=== PATIENT | male | born 1965 | race Caucasian/White ===

== ENCOUNTER 2025-01-12 12:19 | Outpatient (REF) | payer MEDICAID, SELFPAY ==
--- NOTE | ~2025-01-12 | US_ITS ---
EXAMINATION: US RETROPERITONEUM HISTORY: CHRONIC KIDNEY DISEASE TECHNIQUE: Real-time grayscale ultrasound imaging of the kidneys was performed and images were reviewed. COMPARISON: There are no prior studies available for comparison. FINDINGS: Right kidney: The right kidney measures 9.2 x 4.7 x 4.5 cm. Renal parenchymal echotexture and thickness are normal. There are no masses. There is no hydronephrosis or renal calculi. Left Kidney: The left kidney measures 9.6 x 4.7 x 4.7 cm. Renal parenchymal echotexture and thickness are normal. There are no masses. There is no hydronephrosis or renal calculi. The urinary bladder is unremarkable. Bilateral ureteral jets are identified. Before voiding, the urinary bladder measured 8.3 x 6.0 x 7.9 cm, for an estimated volume of 206 mL. The patient could not void. The prostate is poorly visualized. US/US retroperitoneal comp IMPRESSION: 1. The kidneys are unremarkable in appearance. 2. The patient could not void despite 206 mL in the urinary bladder. 3. The prostate is not well visualized. Electronically signed by: Fer Mireles MD 01/12/2025 01:26 PM EDT
--- OUTSIDE RECORDS SUMMARY | 2025-01-12 13:00 | XMS_ITS | Encounter Summary ---
Author Organization [facility] Address [address] [place] [address] Care Team Providers Care Data Engineer Name Role Phone Crow Raya MD Primary Care Provider [phone] Sherri Aguirre PA-C Primary Care Provider [phone] Encounter Details Date Type Department Care Team (Late st Contact Info) Description 09/21/2019 Lab Requisition [facility] Pathology & Laboratory Medicine - [facility] [address] [place] [address] Unknown, Provider, Social History Tobacco Use Types Packs/Day Years Used Date Smoking Tobacco: Never Assessed Sex and Gender Information Value Date Recorded Sex Assigned at Not on file Legal Sex Male 18:42 EST Gender Identity Not on file Sexual Orientation Not on file documented as of this encounter Plan of Treatment Not on file documented as of this encounter Procedures Procedure Name Priority Date/Time Associated Diagnosis Comments URINE [id number] NE RATIO (ACR) Routine 09/21/2019 13:32 EDT documented in this encounter Results * (ABNORMAL) ALBUMIN, URINE (09/21/2019 13:32 EDT) Albumin, Urine 22.2 See Note mg/dL 2019 22:09 EDT [facility] Comment: NOTE: Reference range not established Creatinine, Urine 28.9 See Note mg/dL 09/21/2019 22:09 EDT [facility] Comment: NOTE: Reference range not established Lab Urine Albumin to Creatinine Ratio 768(H) <30 ug/mg Creatinine 09/21/2019 22:09 EDT [facility] Comment: Urine Albumin/Creatinine Ratio: Normal: <30 ug/mg Creatinine Moderately increased albuminuria: 30-300 ug/mg Creatinine Tawana increased albuminuria: >300 ug/mg Creatinine Urine URINE SPECIMEN OBTAINED BY CLEAN CATCH PROCEDURE / Unknown 09/21/2019 13:32 EDT 09/21/2019 21:30 EDT us Provider Unknown CHEMISTRY & BLOOD GAS ORDERA BLES Final Result [facility] [address] [place] [address] documented in this encounter Visit Diagnoses Not on filedocumented in this encounter Care Teams Data Engineer Relationship Specialty Start Date End Date Crow Raya MD [address] [place] [id number] PCP - General 06/28/09 10/30/21 Sherri Aguirre PA-C [address] [place] [address] PCP - General 10/31/21 documented as of this encounter
--- OUTSIDE RECORDS SUMMARY | 2025-01-12 13:00 | XMS_ITS | Clinical Summary ---
Author Organization [facility] Address [facility] [place] [address] Care Team Providers Care Quality Improvement Coordinator (Rn) Name Role Phone Rangel Kruse ANIBAL Primary Care Provider [phone] Allergies Active Allergy Reactions Criticality Noted Date Comments Penicillins Rash 01/15/2021 Medications albuteroL 90 mcg/actuation HFA Aerosol Inhaler Inhale 2 puffs into the lungs every 6 hours as needed for Wheezing. Use with spacer Active krill/om-3/dha /epa/phospho/a st (MAXIMUM RED KRILL OMEGA-3 ORAL) Take 1,000 mg by mouth daily. Active polyethylene glycoL (Miralax) 17 gram oral powder packet Take 17 g by mouth 2 times daily. 4 Active Insulin Syringe-Needle U-100 0.5 mL 31 gauge x 5/16 SyringeIndicat ions:diabetes mellitus Inject 1 each subcutaneously nightly. Indications: diabetes 200 each 4 Active aspirin 81 mg chewable tablet Take 81 mg by mouth daily. 30 tablet 4 Active baclofen (Lioresal) 10 mg tablet Take 1 tablet by mouth 3 times daily. 90 tablet 4 Active bisacodyl EC (Dulcolax) 5 mg Tablet, Delayed Release (E.C.) Take 3 tablets by mouth daily. 90 tablet [address] (Cymbalta) [address] capsule Take 1 capsule by mouth daily. 30 tablet 4 Active omeprazole (PriLOSEC) [address] capsule Take 1 capsule by mouth 2 times daily. 60 capsule 4 Active senna (Senokot) 8.6 mg tablet Take 2 tablets by mouth 2 times daily. 120 tablet 4 Active diclofenac (Voltaren) 1 % Gel Apply 2 g topically 3 times daily as needed. 200 g 4 Active psyllium husk Take 1 packet by mouth daily. 30 packet 4 Active lidocaine (Lidoderm) 5% Adhesive Patch, Medicated Apply 1 patch onto the skin daily. (leave on for 12 hours and remove for 12 hours) 60 patch 4 Active buprenorphine (Subutex) [address] 1 tablet under the tongue 3 times daily. 90 tablet 4 Active blood sugar diagnostic strips Strip Use as instructed 200 each 4 Active blood sugar diagnostic strips Strip Use as instructed 100 each 4 Active Semglee U-100 Insulin 100 unit/mL SolutionIndica tions:type 1 diabetes mellitus Inject 10 Units subcutaneously nightly. Indications: type 1 diabetes mellitus 10 mL 4 Active Semglee U-100 Insulin 100 unit/mL SolutionIndica tions:type 1 diabetes mellitus Inject 18 Units subcutaneously daily. Indications: type 1 diabetes mellitus 10 mL 4 Active naloxone (Narcan) 4 mg/actuation nasal spray 1 spray by Nasal route once as needed (For opioid overdose) for up to 2 doses. [place] into one nostril (either left or right). 2 each 4 Active Admelog U-100 Insulin lispro 100 unit/mL SolutionIndica tions:type 2 diabetes mellitus Inject 0-16 Units subcutaneously 3 times daily (before meals). Please see administration instructions based on size of your meal. Indications: type 2 diabetes mellitus 12 mL 4 Active pregabalin (Lyrica) 75 mg capsule Take 1 capsule by mouth 3 times daily. 90 tablet 4 Active atorvastatin (Lipitor) 40 mg tablet Take 1 tablet by mouth every evening. 30 tablet 4 Active risperiDONE (RisperDAL) 1 mg tablet Take 1 tablet by mouth nightly. 30 tablet 4 Active tamsulosin (Flomax) 0.4 mg capsule Take 2 capsules by mouth daily. 90 tablet 3 4 Active apixaban (Eliquis) 5 mg tablet Take 1 tablet by mouth 2 times daily. 60 tablet Active Active Problems Problem Noted Date Diagnosed Date Pressure injury of deep tissue of sacral region 01/07/2024 Severe opioid use disorder 01/05/2024 Toxic metabolic encephalopathy 01/05/2024 DKA (diabetic ketoacidosis) 01/05/2024 GUSTAVO (acute kidney injury) 01/05/2024 Coag negative Staphylococcus bacteremia 01/05/20 Altered mental status 09/20/2023 Constipation 08/19/2023 Urinary retention due to benign prostatic hyperp lasia 08/02/2023 R MCA/CHUCK borderzone infarct s; associated with an atherosclerotic ICA occlusion 07/28/2023 Overview (07/30/2023): Admitted 07/25/2023 Dx: right hemispheric infarction associated with an atherosclerotic ICA occlusion Antithrombotic stroke prevention Statin therapy Lipid Panel Lab Results Component Value Date CHLPL 141 07/26/2023 HDL 36 07/26/2023 CHOLHDL 3.9 07/26/2023 TRIG 115 07/26/2023 LDLDIRECT 81 07/26/2023 Blood Pressure goals/control Rx SBP> Ideally: Glycemic control Lab Results Component Value Date HA1C 7.7 (H) 07/26/2023 Smoking/tobacco Social History Tobacco Use Smoking Status Every Day Years: 25 Types: Cigarettes Passive exposure: Current Smokeless Tobacco Not on file VTE ppx Fluids Nutrition Carb Control diet 60/60/75 CHO counting level 2 Discharge barriers (eg., guardianship, advance directive, insurance) Meds reconciled? NIHSS (need approx 36 hour post t-PA and intervention) NIH Stroke Scale (from Navigator) NIH Stroke Scale Date 07/25/23 NIH Stroke Scale Time 2200 Level of Consciousness 0 LOC Questions 0 LOC Commands 0 Best Gaze 0 Vision 0 Facial Palsy 0 Motor Arm, Left 1 Motor Arm, Right 0 Motor Leg, Left 1 Motor Leg, Right 0 Limb Ataxia 1 Sensory 0 Best Language 0 Dysarthria 0 Extinction and Inattention: 1 NIH Total Score 4 Occlusion of right internal carotid artery 07/28 Chronic lacunar ischemic stroke 07/28/2023 Arthritis of right ankle 01/15/2021 Chronic hepatitis C 01/15/2021 Chronic pain of right ankle 01/15/2021 Chronic pain of right hand 01/15/2021 Cigarette smoker 01/15/2021 Diabetes mellitus type 1 01/15/2021 Fibrosis of liver 01/15/2021 History of positive hepatitis C 01/15/2021 Panic disorder 01/15/2021 H/O drug abuse 08/01/2020 Diabetic retinopathy 08/01/2020 Hypertension 08/01/2020 Marijuana use 08/01/2020 Bipolar disorder 06/04/2017 Chronic GERD 06/04/2017 Chronic low back pain 06/04/2017 Type 1 diabetes mellitus with retinopathy 2017 Opioid dependence 06/04/2017 Panic disorder without agoraphobia 06/04/2017 Post-traumatic stress disorder, chronic 06/04/19 18 Social History Tobacco Use Types Packs/Day Years Used Date Smoking Tobacco: Every Day Cigarettes Passive Smoke Exposure: Current Tobacco Cessation:Ready to Q uit: Yes; Counseling Given: Yes Alcohol Use Standard Drinks/Week Comments Yes 0 (1 standard drink = 0.6 oz pur e alcohol) [facility] Utilities Answer Date Recorded In the past 12 months has th e [employer], [employer], oil, or water [employer] threatened to shut off services in your home? No 01/05/2024 Hunger Vital Sign Answer Date Recorded Within the past 12 months, y ou worried that your food would run out before you got the money to buy more. Never true 01/05/20 24 Within the past 12 months, t he food you bought just didn't last and you didn't have money to get more. Never true 01/05/2024 PRAPARE - Transportation Answer Date Re corded In the past 12 months, has l ack of transportation kept you from medical appointments or from getting medications? No 10/2023 In the past 12 months, has l ack of transportation kept you from meetings, work, or from getting things needed for daily living? No 01/05/2024 Housing Stability Vital Sign Answer Leander e Recorded In the last 12 months, was t here a time when you were not able to pay the mortgage or rent on time? Patient unable to answer 09/22/2023 In the last 12 months, how m any places have you lived? 1 09/22/2023 In the last 12 months, was t here a time when you did not have a steady place to sleep or slept in a penitentiary (including now)? No 09/22/2023 Housing Stability Vital Sign Answer Leander e Recorded In the last 12 months, was t here a time when you were not able to pay the mortgage or rent on time? No 01/05/2024 In the past 12 months, how m any times have you moved where you were living? 1 01/05/2024 At any time in the past 12 m [facility], were you homeless or living in a penitentiary (including now)? No 01/05/2024 DH IPV Inpatient Questions Answer Date Recorded Does Anyone Try to Keep You From Having Contact with Others or Doing Things Outside Your Home? no 024 Feels Threatened by Someone other (see comments) 01/09/2024 Feels Unsafe at Home or Work/School yes 01/09/2024 Physical Signs of Abuse Present no 01/09/2024 Sex and Gender Information Value Date Recorded Sex Assigned at Not on file Legal Sex Male 7:11 AM EST Gender Identity Not on file Sexual Orientation Not on file Last Filed Vital Signs Vital Sign Reading Time Taken Comments Blood Pressure 115/69 02/06/2024 2:28 PM EDT Pulse 80 02/06/2024 7:39 AM EDT Temperature 36.9 C (98.4 F) 02/06/2024 2:28 PM EDT Respiratory Rate 18 02/06/2024 2:28 PM EDT Oxygen Saturation 96% 02/06/2024 2:28 PM EDT Inhaled Oxygen Concentration - - Weight 76.8 kg (169 lb 6.4 oz) 02/06/2024 9:23 A M EDT Height 170 cm (5' 6.93 ) 01/21/2024 1:32 PM EDT Body Mass Index 26.59 01/21/2024 1:32 PM EDT Plan of Treatment Health Maintenance Due Date Last Done Comments CT Colonography 1967 Colonoscopy 1967 Colorectal Cancer Screening 1967 FIT DNA 1967 FIT 1967 Sigmoidoscopy (10 year) with FIT yearly 1967 Sigmoidoscopy 1967 DM Ophthalmology Exam 10/14/1977 Hepatitis A vaccine 0-18 yrs and Risk (1 of 2 - Risk 2-dose series) 10/14/1986 Hepatitis B vaccine (0-59 yr s) and Risk (1) 10/14/1986 Pneumoccocal Vaccine: 50+ (1 of 2 - PCV) 10/14/1986 Tetanus/Diphtheria/Pertussis Vaccines (1 - Tdap) 10/14/1986 Zoster vaccine (1 of 2) 10/14/2017 Covid-19 Vaccine (6 - 2023-2 5 season) 2024 05/21/2023, 02/27/2022, 06/20/2021, Additional history exists DM Hemoglobin A1c 04/06/2024 01/05/2024, 07/26/2023 Influenza (Flu) vaccine (1 o f 1 - Influenza standard series) 01/31/2025 DM Creatinine yearly 02/05/2025 02/06/2024, 02/05/2024, 02/04/2024, Additional history exists Lipid Screening Discontinued 07/26/2023 HIV screen Completed 01/15/2024 Procedures Procedure Name Priority Date/Time Associated Diagnosis Comments BASIC METABOLIC PANEL Routine 02/06/2024 6:20 AM EDT BLOOD GAS ARTERIAL POC Routine 01/15/2024 5:33 AM EDT HEMOGLOBIN A1C Add-On 01/05/2024 5:59 AM EDT HDL/CHOL PROFILE Routine 07/26/2023 6:35 AM EST from Last 3 Months or Most Recently Relevant to Health Maintenance Results * (ABNORMAL) Basic Metabolic Panel (02/06/2024 6:20 AM EDT) Glucose 127 65 - 199 mg/dL 02/06/2024 8:52 AM EDT [facility] Comment:Glucose Concentratio n >=200 mg/dL plus symptoms is consistent with Diabetes Mellitus. Blood Urea Nitrogen 55(H) 10 - 20 mg/dL 02/06/2024 8:52 AM EDT [facility] Creatinine 1.38 0.80 - 1.50 mg/dL 02/06/2024 8:52 AM EDT [facility] Sodium 138 135 - 145 mMol/L 02/06/2024 8:52 AM EDT [facility] Potassium 4.3 3.5 - 5.0 mMol/L 02/06/2024 8:52 AM EDT [facility] Chloride 103 98 - 107 mMol/L 02/06/2024 8:52 AM EDT [facility] Carbon Dioxide 26 22 - 31 mMol/L 02/06/2024 8:52 AM EDT [facility] Anion Gap 9 5 - 15 mMol/L 02/06/2024 8:52 AM EDT [facility] Calcium 9.3 8.5 - 10.5 mg/dL 02/06/2024 8:52 AM [facility] Est Glomerular Filtration Rate - Male 60 mL/min/1. 73 m 02/06/2024 8:52 AM T [facility] Comment: This patient's estimated GFR was calculated using the 2020 CKD-EPI equation. The estimated GFR can vary from the measured GFR by up to 30% in the absence of rapidly changing kidney function. Assessment of the estimated GFR is not appropriate when creatinine concentrations are rapidly changing. For clinical situations in which a more precise estimate of GFR is necessary, consider alternative methods of GFR estimation such as a 24-hour urine creatinine clearance. Assignment of CKD stage 1 - 5 for patients with an eGFR near the transition point between stages may be based on clinical assessment of muscle mass and symptoms in addition to eGFR. Link: eGFR Calculator [employer] Blood VENOUS BLOOD SPECIMEN / Unknown IP Care Team Draw / Unknown 02/06/2024 6:20 AM EDT 02/06/2024 6:27 AM EDT us Cl Smith MD CHEMISTRY ORDERABLES Final Re sult [facility] [place] [address] * (ABNORMAL) Blood Gas, Arterial POC (01/15/2024 5:33 AM EDT) pH, Arterial 7.40 7.35 - 7.45 01/15/2024 6:53 AM EDT [facility] PCO2, Arterial 40 35 - 45 mmHg 01/15/2024 6:53 AM [facility] PO2, Arterial 97 85 - 104 mmHg 01/15/2024 6:53 AM [facility] Bicarbonate, Arterial 24.2 20.0 - 26.0 mmol/L 01/15/2024 6:53 AM [facility] Base Excess, Arterial -0.5 -3.0 - 3.0 mmol/L 01/15/2024 6:53 AM [facility] Hemoglobin, Arterial 9.4(L) 13.7 - 16.5 g/dL 01/15/2024 6:53 AM [facility] Oxyhemoglobin, Arterial 96.3 94.0 - 97.0 % 01/15/2024 6:53 AM [facility] Carboxyhemoglobin, Arterial 0.6 % 01/15/2024 6:53 AM [facility] Comment: Nonsmokers: 0.5-1.5% COHB Smokers: Variable but usually less than 10% Toxic: 20-30% COHB Lethal: Greater than 60% COHB Methemoglobin, Arterial 0.3 <=1.5 % 01/15/2024 6:53 AM [facility] Sodium, Arterial 136 135 - 145 mmol/L 01/15/2024 6:53 AM [facility] Potassium, Arterial 3.9 3.5 - 5.0 mmol/L 01/15/2024 6:53 AM [facility] Chloride, Arterial 103 98 - 107 mmol/L 01/15/2024 6:53 AM [facility] Lactate, Arterial 1.8 0.5 - 2.2 mmol/L 01/15/2024 6:53 AM [facility] Fraction of Inspired Oxygen 21 % 01/15/2024 6:53 AM [facility] PF Ratio 462 Ratio 01/15/2024 6:53 AM [facility] Comment:PF ratio calculated using the non-temperature corrected pO2 result. IONIZED CALCIUM, ARTERIAL 1.18 1.15 - 1.33 mmol/L 01/15/2024 6:53 AM EDT [facility] Glucose, Arterial 138 65 - 199 mg/dL 01/15/2024 6:53 AM EDT [facility] Comment:Glucose Concentratio n >=200 mg/dL plus symptoms is consistent with Diabetes Mellitus. Blood ARTERIAL BLOOD / Unknown 01/15/2024 5:33 AM EDT 01/15/2024 6:53 AM EDT us Luther Robbins DO POINT OF CARE TEST ORDERABLES Fi nal Result Performing Organization Address City/[facility]/ZIP Co de Phone Number [facility] [place] [address] * (ABNORMAL) Hemoglobin A1c (01/05/2024 5:59 AM EDT) Hemoglobin A1c 8.6(H) 4.3 - 5.6 % 01/05/2024 8:08 AM EDT [facility] Comment: Per ADA guidelines, without clear symptoms of hyperglycemia or a random plasma glucose >199 mg/dL, a single abnormal A1c measurement cannot be used to diagnose diabetes mellitus. The diagnosis must be confirmed by either 1) a concurrent abnormal fasting plasma glucose or impaired response to oral glucose tolerance testing, or 2) an additional abnormal A1c, impaired fasting plasma glucose, or impaired response to oral glucose tolerance testing on a different day. A1c results obtained on patients with altered red blood cell turnover may not be sales donor recruitment representative of glycemic control. Reference Interval: 4.3 - 5.6% 5.7 - 6.4%: Consistent with prediabetes >=6.5%: Consistent with diagnosis of diabetes mellitus Estimated Average Glucose 200 mg/dL 01/05/2024 8:08 AM EDT [facility] Blood VENOUS BLOOD SPECIMEN / Unknown IP Care Team Draw / Unknown 01/05/2024 5:59 AM EDT 01/05/2024 6:08 AM EDT us Rodney Peñaloza MD CHEMISTRY ORDERABLES Final R esult [facility] [place] [address] * HDL/Cholesterol Profile (07/26/2023 6:35 AM EST) Cholesterol, Total 141 mg/dL [facility] Comment: Lower Risk: <200 mg/dL Average Risk: 200-239 mg/dL Higher Risk: >oj=492 mg/dL HDL Cholesterol 36 mg/dL [facility] Comment: Males: Higher Risk: <40 mg/dL Females: Higher Risk: <50 mg/dL Cholesterol/HDL Ratio 3.9 ratio [facility] Chol/HDL Interpretation See Note [facility] Comment: Lipid management should be guided by a patient s ASCVD risk, goals and preferences. ACC/AHA Guidelines recommend high intensity statin if clinical ASCVD or LDL greater than or equal to 190 mg/dL. http://iTwixie.com/ZRV-MBF-Tgheovbkb Measure LDL if Total Cholesterol minus HDL Cholesterol is greater than 220 mg/dL. Adults aged 40-75 with LDL 70-189 mg/dL should have their 10 year ASCVD risk estimated with the ACC/AHA ASCVD risk manufacturing cost estimator http://tools.acc.org/VYRWK-Psgq-Ptqqpdrcy/ Statin should be discussed if risk greater than or equal to 7.5% in non-diabetics. With diabetes, moderate intensity statin is recommended if risk less than 7.5%, high intensity if risk greater than or equal to 7.5%. Annual lipid monitoring on statins is not necessary. Lifestyle modification is a critical component of ASCVD risk reduction. Blood 07/26/2023 6:35 AM EST 07/26/2023 6:44 AM EST Narrative Resulting Agency Comment Spec In Lab us Caitlin Rubio MD CHEMISTRY ORDERABLES Final Result Performing Organization Address City/[facility]/ZIP Co de Phone Number [facility] [place] [address] from Last 3 Months or Most Recently Relevant to Health Maintenance Insurance [place] Advance Directives Documents on File Type Date Recorded Patient Rn Recovery Expl anation Advance Directives and Living Will 01/13/2024 12:27 PM Trang Peerz * Attempt Cardiopulmonary Resuscitation - Inpatient (Latest Code Status on File) Date Activated Date Inactivated Comments 01/05/2024 5:34 AM 02/06/2024 6:10 PM Question Answer Comments Code Status decision made by: Patient Content of discussion: full code * Attempt Cardiopulmonary Resuscitation - Inpatient Date Activated Date Inactivated Comments 09/20/2023 7:02 PM 10/09/2023 5:04 PM Question Answer Comments Code Status decision made by: Patient * Attempt Cardiopulmonary Resuscitation - Inpatient Date Activated Date Inactivated Comments 07/25/2023 10:17 PM 09/10/2023 12:43 PM Question Answer Comments Code Status decision made by: Patient Care Teams Quality Improvement Coordinator (Rn) Relationship Specialty Start Date End Date Rangel Kruse APRN [address] [place] [address] PCP - General Family Medicine 06/04/17
--- OUTSIDE RECORDS SUMMARY | 2025-01-12 13:00 | XMS_ITS | Clinical Summary ---
Author Organization [address] [facility] Address [address] [place] [address] Phone Care Team Providers Care Report Developer Name Role Phone Bryan Payne MD Primary Care Provider [phone] Encounters Date Type Department Care Team Description 11/29/2024 Lab Requisition [facility] [address] [place] [address] Bryan Payne MD Type 1 diabetes mellitus with diabetic polyneuropathy ([facility]/HCC V24, CMS/HCC V28) 11/03/2024 Lab Requisition [facility] [address] [place] [address] Bryan Payne MD Chronic kidney disease, stage 3a (CMS/HCC V24, CMS/HCC V28); Other hyperlipidemia; Anemia, unspecified; Benign prostatic hyperplasia with lower urinary tract symptoms; Encounter for other specified special examinations 10/22/2024 Lab Requisition [facility] [address] [place] [phone] Felicia Almonte MD Chronic viral hepatitis C ([facility]/HCC V24, CMS/HCC V28) 10/22/2024 Lab Requisition [facility] [address] [place] [phone] Bryan Payne MD Chronic viral hepatitis C (CMS/HCC V24, CMS/HCC V28) from Last 3 Months Social History Tobacco Use Types Packs/Day Years Used Date Smoking Tobacco: Never Assessed Sex and Gender Information Value Date Recorded Sex Assigned at Not on file Legal Sex Male 9:40 AM EST Gender Identity Not on file Sexual Orientation Not on file Plan of Treatment Health Maintenance Due Date Last Done Comments Diabetes: Annual Foot Exam 10/14/1977 Diabetes: Annual Retina Eye Exam 10/14/1977 DTaP,Tdap,and Td Vaccines (1 - Tdap) 10/14/1986 Hepatitis A Vaccines (1 of 2 - Risk 2-dose series) 10/14/1986 Hepatitis B Vaccines (1 of 3 - 19+ 3-dose series) 10/14/1986 Pneumococcal Vaccine: 50+ Years (1 of 2 - PCV) 10/14/1986 Zoster Vaccines (1 of 2) 10/14/2017 COVID-19 Vaccine (1 - season) 2024 Colorectal Cancer Screening: Colonoscopy 04/07/2024 Social Influencers of Health Screening 04/07/2024 Depression Screening 06/02/2024 Diabetes: Annual Urine Albumin-Creatinine Ratio (uACR) 08/20/2024 Influenza Vaccine (#1) 2025 Diabetes: Blood Sugar Control Test (HGBA1C) 05/31/2025 11/29/2024, 08/20/2024, 08/04/2024, Additional history exists Diabetes: Annual GFR (Glomerular Filtration Rate) 12/14/2025 12/14/2024, 11/03/2024, 10/22/2024, Additional history exists Hypertension/CHF/CAD Annual BMP Blood Test 12/14/2025 12/14/2024, 11/03/2024, 10/22/2024, Additional history exists Cholesterol Screening (Lipid Panel) 11/03/2029 11/03/2024, 05/05/2024, 04/07/2024 HIV Screening Completed 10/22/2024, 10/22/2024 Hepatitis C Screening Completed 12/14/2024, 025 HIB Vaccines Aged Out No longer eligi ble based on patient's age to complete this topic HPV Vaccines Aged Out No longer eligi ble based on patient's age to complete this topic IPV Vaccines Aged Out No longer eligi ble based on patient's age to complete this topic MMR Vaccines Aged Out No longer eligi ble based on patient's age to complete this topic Meningococcal ACWY Vaccine Aged Out N o longer eligible based on patient's age to complete this topic Meningococcal B Vaccine Aged Out No l onger eligible based on patient's age to complete this topic RSV Immunization Patients Under 20 months Aged Out No longer eligible based on patient's age to complete this topic Varicella Vaccines Aged Out No longer eligible based on patient's age to complete this topic Procedures Procedure Name Priority Date/Time Associated Diagnosis Comments NM PROTEIN ELECTROPHORETIC FRACTIONATION & QUANTITATION SERUM Routine 12/14/2024 8:53 AM EDT Chronic kidney disease (CKD) stage G3a/A1, moderately decreased glomerular filtration rate (GFR) between 45-59 mL/min/1.73 square meter and albuminuria creatinine ratio les* (CMS/HCC V24, CMS/HCC V28) Renal osteodystrophy AST, ALT, BILIRUBIN ELR STATE REPORTABLES Routine 12/14/2024 8:53 AM EDT Chronic kidney disease (CKD) stage G3a/A1, moderately decreased glomerular filtration rate (GFR) between 45-59 mL/min/1.73 square meter and albuminuria creatinine ratio les* (CMS/HCC V24, CMS/HCC V28) Renal osteodystrophy PROTEIN, TOTAL Routine 12/14/2024 8:53 AM EDT Chronic kidney disease (CKD) stage G3a/A1, moderately decreased glomerular filtration rate (GFR) between 45-59 mL/min/1.73 square meter and albuminuria creatinine ratio les* (CMS/HCC V24, CMS/HCC V28) Renal osteodystrophy C4 COMPLEMENT Routine 12/14/2024 8:53 AM EDT Chronic kidney disease (CKD) stage G3a/A1, moderately decreased glomerular filtration rate (GFR) between 45-59 mL/min/1.73 square meter and albuminuria creatinine ratio les* (CMS/HCC V24, CMS/HCC V28) Renal osteodystrophy C3 COMPLEMENT Routine 12/14/2024 8:53 AM EDT Chronic kidney disease (CKD) stage G3a/A1, moderately decreased glomerular filtration rate (GFR) between 45-59 mL/min/1.73 square meter and albuminuria creatinine ratio les* (CMS/HCC V24, CMS/HCC V28) Renal osteodystrophy HUYEN IFA WITH TITER AND PATTERN Routine 12/14/2024 8:53 AM EDT Chronic kidney disease (CKD) stage G3a/A1, moderately decreased glomerular filtration rate (GFR) between 45-59 mL/min/1.73 square meter and albuminuria creatinine ratio les* (CMS/HCC V24, CMS/HCC V28) Renal osteodystrophy HEPATITIS B CORE ANTIBODY IGM Routine 12/14/2024 8:53 AM EDT Chronic kidney disease (CKD) stage G3a/A1, moderately decreased glomerular filtration rate (GFR) between 45-59 mL/min/1.73 square meter and albuminuria creatinine ratio les* (CMS/HCC V24, CMS/HCC V28) Renal osteodystrophy HEPATITIS C ANTIBODY Routine 12/14/2024 8:53 AM EDT Chronic kidney disease (CKD) stage G3a/A1, moderately decreased glomerular filtration rate (GFR) between 45-59 mL/min/1.73 square meter and albuminuria creatinine ratio les* (CMS/HCC V24, CMS/HCC V28) Renal osteodystrophy HEPATITIS B SURFACE ANTIGEN WITH CONFIRMATION Routine 12/14/2024 8:53 AM EDT Chronic kidney disease (CKD) stage G3a/A1, moderately decreased glomerular filtration rate (GFR) between 45-59 mL/min/1.73 square meter and albuminuria creatinine ratio les* (CMS/HCC V24, CMS/HCC V28) Renal osteodystrophy HEPATITIS B SURFACE ANTIBODY QUANTITATIVE Routine 12/14/2024 8:53 AM EDT Chronic kidney disease (CKD) stage G3a/A1, moderately decreased glomerular filtration rate (GFR) between 45-59 mL/min/1.73 square meter and albuminuria creatinine ratio les* (CMS/HCC V24, CMS/HCC V28) Renal osteodystrophy KAPPA-LAMBDA QUANTITATIVE FREE LIGHT CHAINS Routine 12/14/2024 8:53 AM EDT Chronic kidney disease (CKD) stage G3a/A1, moderately decreased glomerular filtration rate (GFR) between 45-59 mL/min/1.73 square meter and albuminuria creatinine ratio les* (CMS/HCC V24, CMS/HCC V28) Renal osteodystrophy PROTEIN ELECTROPHORESIS, SERUM Routine 12/14/2024 8:53 AM EDT Chronic kidney disease (CKD) stage G3a/A1, moderately decreased glomerular filtration rate (GFR) between 45-59 mL/min/1.73 square meter and albuminuria creatinine ratio les* (CMS/HCC V24, CMS/HCC V28) Renal osteodystrophy MAGNESIUM Routine 12/14/2024 8:53 AM EDT Chronic kidney disease (CKD) stage G3a/A1, moderately decreased glomerular filtration rate (GFR) between 45-59 mL/min/1.73 square meter and albuminuria creatinine ratio les* (CMS/HCC V24, CMS/HCC V28) Renal osteodystrophy COMPLETE BLOOD COUNT Routine 12/14/2024 8:53 AM EDT Chronic kidney disease (CKD) stage G3a/A1, moderately decreased glomerular filtration rate (GFR) between 45-59 mL/min/1.73 square meter and albuminuria creatinine ratio les* (CMS/HCC V24, CMS/HCC V28) Renal osteodystrophy VITAMIN D 25 HYDROXY Routine 12/14/2024 8:53 AM EDT Chronic kidney disease (CKD) stage G3a/A1, moderately decreased glomerular filtration rate (GFR) between 45-59 mL/min/1.73 square meter and albuminuria creatinine ratio les* (CMS/HCC V24, CMS/HCC V28) Renal osteodystrophy RENAL FUNCTION PANEL Routine 12/14/2024 8:53 AM EDT Chronic kidney disease (CKD) stage G3a/A1, moderately decreased glomerular filtration rate (GFR) between 45-59 mL/min/1.73 square meter and albuminuria creatinine ratio les* (CMS/HCC V24, CMS/HCC V28) Renal osteodystrophy PARATHYROID HORMONE INTACT Routine 12/14/2024 8:53 AM EDT Chronic kidney disease (CKD) stage G3a/A1, moderately decreased glomerular filtration rate (GFR) between 45-59 mL/min/1.73 square meter and albuminuria creatinine ratio les* (CMS/HCC V24, CMS/HCC V28) Renal osteodystrophy HEMOGLOBIN A1C Routine 11/29/2024 6:50 AM EDT Type 1 diabetes mellitus with diabetic polyneuropathy (CMS/HCC V24, CMS/HCC V28) CBC WITH AUTO DIFFERENTIAL Routine 11/03/2024 7:05 AM EDT Chronic kidney disease, stage 3a (CMS/HCC V24, CMS/HCC V28) Other hyperlipidemia Anemia, unspecified Benign prostatic hyperplasia with lower urinary tract symptoms Encounter for other specified special examinations THYROID STIMULATING HORMONE Routine 11/03/2024 7:05 AM EDT Chronic kidney disease, stage 3a (CMS/HCC V24, CMS/HCC V28) Other hyperlipidemia Anemia, unspecified Benign prostatic hyperplasia with lower urinary tract symptoms Encounter for other specified special examinations PROSTATE SPECIFIC ANTIGEN DIAGNOSTIC Routine 11/03/2024 7:05 AM EDT Chronic kidney disease, stage 3a (CMS/HCC V24, CMS/HCC V28) Other hyperlipidemia Anemia, unspecified Benign prostatic hyperplasia with lower urinary tract symptoms Encounter for other specified special examinations CBC AND DIFFERENTIAL Routine 11/03/2024 7:05 AM EDT Chronic kidney disease, stage 3a (CMS/HCC V24, CMS/HCC V28) Other hyperlipidemia Anemia, unspecified Benign prostatic hyperplasia with lower urinary tract symptoms Encounter for other specified special examinations LIPID PANEL WITH REFLEX TO DIRECT LDL Routine 11/03/2024 7:05 AM EDT Chronic kidney disease, stage 3a (CMS/HCC V24, CMS/HCC V28) Other hyperlipidemia Anemia, unspecified Benign prostatic hyperplasia with lower urinary tract symptoms Encounter for other specified special examinations COMPREHENSIVE METABOLIC PANEL Routine 11/03/2024 7:05 AM EDT Chronic kidney disease, stage 3a (CMS/HCC V24, CMS/HCC V28) Other hyperlipidemia Anemia, unspecified Benign prostatic hyperplasia with lower urinary tract symptoms Encounter for other specified special examinations PROTHROMBIN TIME WITH INR Routine 10/22/2024 6:59 AM EDT Chronic viral hepatitis C (CMS/HCC V24, CMS/HCC V28) TREPONEMA PALLIDUM ANTIBODY WITH REFLEX TO RPR AND PARTICLE AGGLUTINATION Routine 10/22/2024 6:59 AM EDT Chronic viral hepatitis C (CMS/HCC V24, CMS/HCC V28) HEPATITIS B SURFACE ANTIGEN WITH CONFIRMATION Routine 10/22/2024 6:59 AM EDT Chronic viral hepatitis C (CMS/HCC V24, CMS/HCC V28) HIV 1, 2 ANTIBODY, P24 ANTIGEN WITH REFLEX TO DIFFERENTIATION Routine 10/22/2024 6:59 AM EDT Chronic viral hepatitis C (CMS/HCC V24, CMS/HCC V28) HEPATITIS B SURFACE ANTIBODY Routine 10/22/2024 6:59 AM EDT Chronic viral hepatitis C (CMS/HCC V24, CMS/HCC V28) BILIRUBIN, TOTAL AND DIRECT Routine 10/22/2024 6:59 AM EDT Chronic viral hepatitis C (CMS/HCC V24, CMS/HCC V28) ALBUMIN Routine 10/22/2024 6:59 AM EDT Chronic viral hepatitis C (CMS/HCC V24, CMS/HCC V28) CREATININE, SERUM Routine 10/22/2024 6:5 9 AM EDT Chronic viral hepatitis C (CMS/HCC V24, CMS/HCC V28) ASPARTATE AMINOTRANSFERASE Routine 10/22/2024 6:59 AM EDT Chronic viral hepatitis C (CMS/HCC V24, CMS/HCC V28) ALANINE AMINOTRANSFERASE Routine 10/22/2024 6:59 AM EDT Chronic viral hepatitis C (CMS/HCC V24, CMS/HCC V28) CBC WITH AUTO DIFFERENTIAL Routine 10/22/2024 6:59 AM EDT Chronic viral hepatitis C (CMS/HCC V24, CMS/HCC V28) CBC AND DIFFERENTIAL Routine 10/22/2024 6:59 AM EDT Chronic viral hepatitis C (CMS/HCC V24, CMS/HCC V28) HEPATITIS A ANTIBODY IGM Routine 10/22/2024 6:59 AM EDT Chronic viral hepatitis C (CMS/HCC V24, CMS/HCC V28) WHITE - K2EDTA Routine 10/22/2024 6:59 AM EDT Chronic viral hepatitis C (CMS/HCC V24, CMS/HCC V28) LAVENDER - EDTA Routine 10/22/2024 6:59 AM EDT Chronic viral hepatitis C (CMS/HCC V24, CMS/HCC V28) SST - GOLD Routine 10/22/2024 6:59 AM EDT Chronic viral hepatitis C (CMS/HCC V24, CMS/HCC V28) HEPATITIS A ANTIBODY TOTAL WITH REFLEX IGM Routine 10/22/2024 6:59 AM EDT Chronic viral hepatitis C (CMS/HCC V24, CMS/HCC V28) SST - GOLD Routine 10/22/2024 6:59 AM EDT Chronic viral hepatitis C (CMS/HCC V24, CMS/HCC V28) SST - GOLD Routine 10/22/2024 6:59 AM EDT Chronic viral hepatitis C (CMS/HCC V24, CMS/HCC V28) CBC WITH AUTO DIFFERENTIAL Routine 10/22/2024 6:59 AM EDT Chronic viral hepatitis C (CMS/HCC V24, CMS/HCC V28) HIV 1, 2 ANTIBODY, P24 ANTIGEN WITH REFLEX TO DIFFERENTIATION Routine 10/22/2024 6:59 AM EDT Chronic viral hepatitis C (CMS/HCC V24, CMS/HCC V28) HEPATITIS C VIRUS QUANTITATIVE PCR Routine 10/22/2024 6:59 AM EDT Chronic viral hepatitis C (CMS/HCC V24, CMS/HCC V28) TREPONEMA PALLIDUM ANTIBODY WITH REFLEX TO RPR AND PARTICLE AGGLUTINATION Routine 10/22/2024 6:59 AM EDT Chronic viral hepatitis C (CMS/HCC V24, CMS/HCC V28) CREATININE, SERUM Routine 10/22/2024 6:5 9 AM EDT Chronic viral hepatitis C (CMS/HCC V24, CMS/HCC V28) ALANINE AMINOTRANSFERASE Routine 10/22/2024 6:59 AM EDT Chronic viral hepatitis C (CMS/HCC V24, CMS/HCC V28) ASPARTATE AMINOTRANSFERASE Routine 10/22/2024 6:59 AM EDT Chronic viral hepatitis C (CMS/HCC V24, CMS/HCC V28) PROTHROMBIN TIME WITH INR Routine 10/22/2024 6:59 AM EDT Chronic viral hepatitis C (CMS/HCC V24, CMS/HCC V28) HEPATITIS B SURFACE ANTIGEN WITH CONFIRMATION Routine 10/22/2024 6:59 AM EDT Chronic viral hepatitis C (CMS/HCC V24, CMS/HCC V28) HEPATITIS B SURFACE ANTIBODY Routine 10/22/2024 6:59 AM EDT Chronic viral hepatitis C (CMS/HCC V24, CMS/HCC V28) CBC AND DIFFERENTIAL Routine 10/22/2024 6:59 AM EDT Chronic viral hepatitis C (CMS/HCC V24, CMS/HCC V28) BILIRUBIN, TOTAL AND DIRECT Routine 10/22/2024 6:59 AM EDT Chronic viral hepatitis C (CMS/HCC V24, CMS/HCC V28) ALBUMIN Routine 10/22/2024 6:59 AM EDT Chronic viral hepatitis C (CMS/HCC V24, CMS/HCC V28) from Last 3 Months Results * (ABNORMAL) Hepatitis C antibody (12/14/2024 8:53 AM EDT) Pathologist [facility] Hepatitis C Antibody Positive (A) Negative LAB CHEMISTRY METHOD 12/14/2024 2:12 PM EDT [facility] Comment:If confirmation of t his positive HCV Ab screening test is needed, please redraw and order HCV Viral Load. Note--> This test may not be added on due to different specimen requirements. Blood Venous blood specimen / Unknown Venipuncture / Unknown 12/14/2024 8:53 AM EDT 12/14/2024 10:45 AM EDT Sai Vasquez MD LAB BLOOD ORDERABLES Final Re sult Performing Organization Address [facility] Co de Phone Number [facility] [address] [place] [address], [place] [phone] * Hepatitis B surface antigen with reflex to confirmation (12/14/2024 8:53 AM EDT) Only the most recent of3 resultswithin the time period is included. [facility] Hepatitis B Surface Ag Negative Negative LAB CHEMISTRY METHOD 12/14/2024 1:45 PM EDT [facility] Blood Venous blood specimen / Unknown Venipuncture / Unknown 12/14/2024 8:53 AM EDT 12/14/2024 10:45 AM EDT Narrative [facility] - 12/14/2024 1:45 PM EDT Over the counter supplements containing high doses of biotin may interfere with this assay. If interference is suspected, patients shoud be retested after refraining from biotin supplements for 72 hours. Sai Vasquez MD LAB BLOOD ORDERABLES Final Re sult Performing Organization Address [facility]/ZIP Co de Phone Number [facility] [address] [place] [address], [place] [phone] * PATHOLOGIST REVIEW PROTEIN ELECTROPHORESIS (12/14/2024 8:53 AM EDT) [facility] Pathologist Interpretation 12/16/2024 2:35 PM EDT [facility] Blood Venous blood specimen / Unknown Venipuncture / Unknown 12/14/2024 8:53 AM EDT 12/14/2024 10:45 AM EDT Sai Vasquez MD LAB BLOOD ORDERABLES Final Re sult Performing Organization Address City/[facility]/ZIP Co de Phone Number [facility] [address] [place] [address], [place] [phone] * AST, ALT, Bilirubin ELR state reportables (12/14/2024 8:53 AM EDT) Pathologist [facility] Platelets 328 K/mcL LAB HEMETOLOGY METHOD 12/14/2024 2:33 PM EDT [facility] Blood Venous blood specimen / Unknown Venipuncture / Unknown 12/14/2024 8:53 AM EDT 12/14/2024 10:45 AM EDT us Sai Vasquez MD LAB BLOOD ORDERABLES Final Re sult Performing Organization Address [facility]/ZIP Co de Phone Number [facility] [address] [place] [address], [place] [phone] * (ABNORMAL) Sonoita-lambda free light chains, quantitative (12/14/2024 8:53 AM EDT) [place] Free Light Chain 2.81(H) 0.33 - 1.94 mg/dL 12/16/2024 12:[address] [facility] Lambda Free Light Chain 1.82 0.57 - 2.63 mg/dL 12/16/2024 12:[address] [facility] Sonoita/Lambda FLC Ratio 1.54 0.26 - 1.65 12/16/2024 12:[address] [facility] Comment: Test performed at [place], [address], [place] [address] Dana Moreno MD, PhD - Tool Liaison Blood Venous blood specimen / Unknown Venipuncture / Unknown 12/14/2024 8:53 AM EDT 12/14/2024 10:45 AM EDT Sai Vasquez MD LAB BLOOD ORDERABLES Final Re sult MICHAEL P[facility]REZ [address] [place] [address] * HUYEN IFA with titer and pattern (12/14/2024 8:53 AM EDT) HUYEN Negative Negative 12/15/2024 1:33 PM EDT [facility] Blood Venous blood specimen / Unknown Venipuncture / Unknown 12/14/2024 8:53 AM EDT 12/14/2024 10:45 AM EDT Sai Vasquez MD LAB BLOOD ORDERABLES Final Re sult Performing Organization Address [facility] Co de Phone Number [facility] [address] [place] [address], [place] [phone] * Hepatitis B core antibody IgM (12/14/2024 8:53 AM EDT) Hep B Core IgM Negative Negative LAB CHEMISTRY METHOD 12/14/2024 2:13 PM EDT [facility] Blood Venous blood specimen / Unknown Venipuncture / Unknown 12/14/2024 8:53 AM EDT 12/14/2024 10:45 AM EDT Narrative [facility] - 12/14/2024 2:13 PM EDT Over the counter supplements containing high doses of biotin may interfere with this assay. If interference is suspected, patients shoud be retested after refraining from biotin supplements for 72 hours. us Sai Vasquez MD LAB BLOOD ORDERABLES Final Re sult Performing Organization Address City/[facility]/ZIP Co de Phone Number [facility] [address] [place] [address], [place] [phone] * (ABNORMAL) Hepatitis B surface antibody quantitative (12/14/2024 8:53 AM EDT) Pathologist [facility] Hepatitis B Surface Ab Positive (A) Negative LAB CHEMISTRY METHOD 12/14/2024 1:35 PM EDT [facility] Hepatitis B Surface Ab Quantitative >1,000.0 mIU/mL LAB CHEMISTRY METHOD 12/14/2024 1:35 PM EDT [facility] Blood Venous blood specimen / Unknown Venipuncture / Unknown 12/14/2024 8:53 AM EDT 12/14/2024 10:45 AM EDT Narrative [facility] - 12/14/2024 1:35 PM EDT >=10 mIU/mL is considered to be consistent with immunity. Sai Vasquez MD LAB BLOOD ORDERABLES Final Re sult Performing Organization Address [facility]/ZIP Co de Phone Number [facility] [address] [place] [address], [place] [phone] * (ABNORMAL) Vitamin D 25 hydroxy (12/14/2024 8:53 AM EDT) Pathologist [facility] Vit D, 25-Hydroxy 22.3(L) 30.0 - 80.0 ng/mL LAB CHEMISTRY METHOD 12/14/2024 1:34 PM EDT [facility] Blood Venous blood specimen / Unknown Venipuncture / Unknown 12/14/2024 8:53 AM EDT 12/14/2024 10:45 AM EDT us Sai Vasquez MD LAB BLOOD ORDERABLES Final Re sult Performing Organization Address City/[facility]/ZIP Co de Phone Number [facility] [address] [place] [address], [place] [phone] * (ABNORMAL) Complete blood count (12/14/2024 8:53 AM EDT) [facility] Signature WBC 8.9 4.8 - 10.8 K/mcL LAB HEMETOLOGY METHOD 12/14/2024 10:53 AM [facility] RBC 4.50 4.50 - 5.50 M/mcL LAB HEMETOLOGY METHOD 12/14/2024 10:53 AM EDT [facility] Hemoglobin 13.3(L) 13.5 - 17.5 g/dL LAB HEMETOLOGY METHOD 12/14/2024 10:53 AM [facility] Hematocrit 40.3(L) 42.0 - 54.0 % LAB HEMETOLOGY METHOD 12/14/2024 10:53 AM [facility] MCV 90.6 79.0 - 98.0 FL LAB HEMETOLOGY METHOD 12/14/2024 10:53 AM [facility] MCH 29.9 27.0 - 32.0 pcg LAB HEMETOLOGY METHOD 12/14/2024 10:53 AM [facility] MCHC 33.0 32.0 - 37.0 g/dL LAB HEMETOLOGY METHOD 12/14/2024 10:53 AM [facility] RDW 12.7 11.0 - 15.0 % LAB HEMETOLOGY METHOD 12/14/2024 10:53 AM [facility] Platelets 328 130 - 400 K/mcL LAB HEMETOLOGY METHOD 12/14/2024 10:53 AM [facility] MPV 10.4 7.0 - 11.0 FL LAB HEMETOLOGY METHOD 12/14/2024 10:53 AM [facility] NRBC 0.0 <1.0 % LAB HEMETOLOGY METHOD 12/14/2024 10:53 AM [facility] NRBC Absolute 0.00 <0.10 K/mcL LAB HEMETOLOGY METHOD 12/14/2024 10:53 AM EDT [facility] Blood Venous blood specimen / Unknown Venipuncture / Unknown 12/14/2024 8:53 AM EDT 12/14/2024 10:47 AM EDT us Sai Vasquez MD LAB BLOOD ORDERABLES Final Re sult Performing Organization Address City/[facility]/ZIP Co de Phone Number [facility] [address] [place] [address], [place] [phone] * C3 complement (12/14/2024 8:53 AM EDT) C3 Complement 137 88 - 201 mg/dL LAB CHEMISTRY METHOD 12/14/2024 12:41 PM EDT [facility] Blood Venous blood specimen / Unknown Venipuncture / Unknown 12/14/2024 8:53 AM EDT 12/14/2024 10:45 AM EDT us Sai Vasquez MD LAB BLOOD ORDERABLES Final Re sult Performing Organization Address [facility]/ZIP Co de Phone Number [facility] [address] [place] [address], [place] [phone] * C4 complement (12/14/2024 8:53 AM EDT) C4 Complement 34 16 - 47 mg/dL LAB CHEMISTRY METHOD 12/14/2024 12:41 PM EDT [facility] Blood Venous blood specimen / Unknown Venipuncture / Unknown 12/14/2024 8:53 AM EDT 12/14/2024 10:45 AM EDT us Sai Vasquez MD LAB BLOOD ORDERABLES Final Re sult [facility] [address] [place] [address], [place] [phone] * Protein electrophoresis, serum (12/14/2024 8:53 AM EDT) Total Protein 7.0 6.0 - 8.0 g/dL LAB CHEMISTRY METHOD 12/16/2024 2:35 PM EDT [facility] Albumin, Serum 3.5 2.9 - 4.1 g/dL LAB CHEMISTRY METHOD 12/16/2024 2:35 PM EDT [facility] Alpha 1 Globulin (g/dL) 0.2 0.1 - 0.5 g/dL LAB CHEMISTRY METHOD 12/16/2024 2:35 PM EDT [facility] Alpha 2 Globulin (g/dL) 1.1 0.7 - 1.5 g/dL LAB CHEMISTRY METHOD 12/16/2024 2:35 PM EDT [facility] Beta (g/dL) 1.2 0.7 - 1.5 g/dL LAB CHEMISTRY METHOD 12/16/2024 2:35 PM EDT [facility] Gamma Globulin (g/dL) 1.0 0.7 - 1.9 g/dL LAB CHEMISTRY METHOD 12/16/2024 2:35 PM EDT [facility] SPEP Interpretation No M-Shaq seen. Essentially normal pattern. LAB CHEMISTRY METHOD 12/16/2024 2:35 PM EDT [facility] Blood Venous blood specimen / Unknown Venipuncture / Unknown 12/14/2024 8:53 AM EDT 12/14/2024 10:45 AM EDT us Sai Vasquez MD LAB BLOOD ORDERABLES Final Re sult [facility] [address] [place] [address], [place] [phone] * Protein, total (12/14/2024 8:53 AM EDT) Total Protein 7.0 6.0 - 8.0 g/dL LAB CHEMISTRY METHOD 12/14/2024 12:42 PM EDT [facility] Blood Venous blood specimen / Unknown Venipuncture / Unknown 12/14/2024 8:53 AM EDT 12/14/2024 10:45 AM EDT us Sai Vasquez MD LAB BLOOD ORDERABLES Final Re sult Performing Organization Address [facility]/ZIP Co de Phone Number [facility] [address] [place] [address], [place] [phone] * Parathyroid hormone intact (12/14/2024 8:53 AM EDT) PTH 28.1 18.5 - 88.0 pcg/mL LAB CHEMISTRY METHOD 12/14/2024 1:34 PM EDT [facility] Blood Venous blood specimen / Unknown Venipuncture / Unknown 12/14/2024 8:53 AM EDT 12/14/2024 10:45 AM EDT us Sai Vasquez MD LAB BLOOD ORDERABLES Final Re sult Performing Organization Address [facility] Co de Phone Number [facility] [address] [place] [address], [place] [phone] * Magnesium (12/14/2024 8:53 AM EDT) Magnesium 1.9 1.9 - 2.6 mg/dL LAB CHEMISTRY METHOD 12/14/2024 12:30 PM EDT [facility] Blood Venous blood specimen / Unknown Venipuncture / Unknown 12/14/2024 8:53 AM EDT 12/14/2024 10:45 AM EDT us Sai Vasquez MD LAB BLOOD ORDERABLES Final Re sult [facility] [address] [place] [address], * (ABNORMAL) Renal function panel (12/14/2024 8:53 AM EDT) Sodium 143 133 - 145 mmol/L LAB CHEMISTRY METHOD 12/14/2024 2:57 PM EDT [facility] Potassium 3.5 3.5 - 5.5 mmol/L LAB CHEMISTRY METHOD 12/14/2024 2:57 PM EDT [facility] Chloride 110 96 - 110 mmol/L LAB CHE[facility]STR[facility] CO2 27 21 - 32 mmol/L LAB CHEMISTRY METHOD 12/14/2024 2:[facility] Anion Gap 6 3 - 11 LAB CHEMISTRY METHOD 12/14/2024 2:57 PM EDT [facility] Glucose 25(LL) 70 - 100 mg/dL LAB CHEMISTRY METHOD 12/14/2024 2:57 PM [facility] BUN 19 5 - 25 mg/dL LAB CHEMISTRY METHOD 12/14/2024 2:57 PM T [facility] Creatinine 1.05 0.70 - 1.30 mg/dL LAB CHEMISTRY METHOD 12/14/2024 2:57 PM EDT [facility] eGFR 83 >=60 mL/min/1. 73m2 LAB CHEMISTRY METHOD 12/14/2024 2:57 PM T [facility] Comment:Calculation based on the Chronic Kidney Disease Epidemiology Collaboration (CKD-EPI) equation refit without adjustment for race. BUN/Creatinine Ratio 18.1 LAB CHEMISTRY METHOD 12/14/2024 2:57 PM T [facility] Albumin 3.9 3.2 - 5.0 g/dL LAB CHEMISTRY METHOD 12/14/2024 2:57 PM EDT [facility] Calcium 9.1 8.5 - 10.5 mg/dL LAB CHEMISTRY METHOD 12/14/2024 2:57 PM EDT [facility] Phosphorus 3.6 2.5 - 4.5 mg/dL LAB CHEMISTRY METHOD 12/14/2024 2:57 PM EDT [facility] Blood Venous blood specimen / Unknown Venipuncture / Unknown 12/14/2024 8:53 AM EDT 12/14/2024 10:45 AM EDT Sai Vasquez MD LAB BLOOD ORDERABLES Final Re sult Performing Organization Address City/[facility]/ZIP Co de Phone Number [facility] [address] [place] [address], [place] [phone] * (ABNORMAL) Hemoglobin A1c (11/29/2024 6:50 AM EDT) Hemoglobin A1C 8.6(H) <6.5 % LAB CHEMISTRY METHOD 11/29/2024 12:42 PM EDT [facility] Mean Bld Glu Estim. 200 mg/dL LAB CHEMISTRY METHOD 11/29/2024 12:42 PM EDT [facility] Blood Venous blood specimen / Unknown 11/29/2024 6:50 AM EDT 11/29/2024 7:17 AM EDT Bryan Payne MD LAB BLOOD ORDERABLES Final Resul t [facility] [address] [place] [address], [place] [phone] * Lipid panel with reflex to direct LDL (11/03/2024 7:05 AM EDT) Cholesterol 167 0 - 200 mg/dL LAB CHEMISTRY METHOD 11/03/2024 9:26 AM EDT [facility] Triglycerides 111 0 - 150 mg/dL LAB CHEMISTRY METHOD 11/03/2024 9:26 AM EDT [facility] HDL 62 >=40 mg/dL LAB CHEMISTRY METHOD 11/03/2024 9:26 AM EDT [facility] LDL Calculated 83 0 - 100 mg/dL LAB CHEMISTRY METHOD 11/03/2024 9:26 AM EDT [facility] VLDL Cholesterol Blue 22.2 mg/dL LAB CHEMISTRY METHOD 11/03/2024 9:26 AM EDT [facility] Non HDL Chol. (LDL+VLDL) 105 <145 mg/dL LAB CHEMISTRY METHOD 11/03/2024 9:26 AM EDT [facility] Chol/HDL Ratio 2.7 0.0 - 4.4 LAB CHEMISTRY METHOD 11/03/2024 9:26 AM EDT [facility] Blood Venous blood specimen / Unknown 11/03/2024 7:05 AM EDT 11/03/2024 8:39 AM EDT us Bryan Payne MD LAB BLOOD ORDERABLES Final Resul t [facility] [address] [place] [address], [place] [phone] * Prostate specific antigen diagnostic (11/03/2024 7:05 AM EDT) PSA 0.09 0.00 - 4.00 ng/mL LAB CHEMISTRY METHOD 11/03/2024 10:51 AM EDT [facility] Blood Venous blood specimen / Unknown 11/03/2024 7:05 AM EDT 11/03/2024 8:39 AM EDT Narrative [facility] - 11/03/2024 10:51 AM EDT The Siemens Advia Centaur Chemiluminescent Immunoassay is used. Results obtained with different assay methods or kits cannot be used interchangeably. Results cannot be interpreted as absolute evidence of the presence or absence of malignant disease. us Bryan Payne MD LAB BLOOD ORDERABLES Final Resul t [facility] [address] [place] [address], * (ABNORMAL) CBC auto differential (11/03/2024 7:05 AM EDT) Only the most recent of3 resultswithin the time period is included. WBC 6.4 4.8 - 10.8 K/mcL LAB HEMETOLOGY METHOD 11/03/2024 9:08 AM EDT [facility] RBC 4.20(L) 4.50 - 5.50 M/mcL LAB HEMETOLOGY METHOD 11/03/2024 9:08 AM [facility] Hemoglobin 12.9(L) 13.5 - 17.5 g/dL LAB HEMETOLOGY METHOD 11/03/2024 9:08 AM [facility] Hematocrit 37.9(L) 42.0 - 54.0 % LAB HEMETOLOGY METHOD 11/03/2024 9:08 AM [facility] MCV 89.8 79.0 - 98.0 FL LAB HEMETOLOGY METHOD 11/03/2024 9:08 AM [facility] MCH 30.6 27.0 - 32.0 pcg LAB HEMETOLOGY METHOD 11/03/2024 9:08 AM EDT [facility] MCHC 34.0 32.0 - 37.0 g/dL LAB HEMETOLOGY METHOD 11/03/2024 9:08 AM [facility] RDW 12.6 11.0 - 15.0 % LAB HEMETOLOGY METHOD 11/03/2024 9:08 AM [facility] Platelets 254 130 - 400 K/mcL LAB HEMETOLOGY [facility] 11/03[facility]24 9:[facility] MPV 11.0 7.0 - 11.0 FL LAB HEMETOLOGY METHOD 11/03/2024 9:08 AM [facility] NRBC 0.0 <1.0 % LAB HEMETOLOGY METHOD 11/03/2024 9:08 AM [facility] NRBC Absolute 0.00 <0.10 K/mcL LAB HEMETOLOGY METHOD 11/03/2024 9:08 AM [facility] Neutrophils Relative 57.7 % LAB HEMETOLOGY METHOD 11/03/2024 9:08 AM [facility] Lymphocytes Relative 26.7 % LAB HEMETOLOGY METHOD 11/03/2024 9:08 AM [facility] Monocytes Relative 7.2 % LAB HEMETOLOGY METHOD 11/03/2024 9:08 AM [facility] Eosinophils Relative 6.7 % LAB HEMETOLOGY METHOD 11/03/2024 9:08 AM [facility] Basophils Relative 1.2 % LAB HEMETOLOGY METHOD 11/03/2024 9:08 AM [facility] Immature Granulocytes Relative 0.5 % LAB HEMETOLOGY METHOD 11/03/2024 9:08 AM [facility] Neutrophils Absolute 3.70 1.50 - 7.00 K/mcL LAB HEMETOLOGY METHOD 11/03/2024 9:08 AM [facility] Lymphocytes Absolute 1.71 1.00 - 5.00 K/mcL LAB HEMETOLOGY METHOD 11/03/2024 9:08 AM [facility] Monocytes Absolute 0.46 0.20 - 1.00 K/mcL LAB HEMETOLOGY METHOD 11/03/2024 9:08 AM [facility] Eosinophils Absolute 0.43 0.00 - 0.50 K/mcL LAB HEMETOLOGY METHOD 11/03/2024 9:08 AM [facility] Basophils Absolute 0.08 0.00 - 0.20 K/[facility] LAB HEMETOLOGY METHOD 11/03/2024 9:08 AM EDT [facility] Immature Granulocytes Absolute 0.03 0.00 - 0.03 K/[facility] LAB HEMETOLOGY METHOD 11/03/2024 9:08 AM EDT [facility] Blood Venous blood specimen / Unknown 11/03/2024 7:05 AM EDT 11/03/2024 8:39 AM EDT us Bryan Payne MD LAB BLOOD ORDERABLES Final Resul t Performing Organization Address City/[facility]/ZIP Co de Phone Number [facility] [address] [place] [address], [place] [phone] * Thyroid stimulating hormone (11/03/2024 7:05 AM EDT) TSH 1.32 0.40 - 4.00 mcIU/mL LAB CHEMISTRY METHOD 11/03/2024 11:14 AM EDT [facility] Blood Venous blood specimen / Unknown 11/03/2024 7:05 AM EDT 11/03/2024 8:39 AM EDT us Bryan Payne MD LAB BLOOD ORDERABLES Final Resul t Performing Organization Address [facility]/ZIP Co de Phone Number [facility] [address] [place] [address], [place] [phone] * (ABNORMAL) Comprehensive metabolic panel (11/03/2024 7:05 AM EDT) Sodium 142 133 - 145 mmol/L LAB CHEMISTRY METHOD 11/03/2024 9:25 AM EDT [facility] Potassium 4.3 3.5 - 5.5 mmol/L LAB CHEMISTRY METHOD 11/03/2024 9:25 AM EDT [facility] Chloride 108 96 - 110 mmol/L LAB CHEMISTRY METHOD 11/03/2024 9:25 AM [facility] CO2 29 21 - 32 mmol/L LAB CHEMISTRY METHOD 11/03/2024 9:25 AM [facility] Anion Gap 5 3 - 11 LAB CHEMISTRY METHOD 11/03/2024 9:25 AM [facility] Glucose 176(H) 70 - 100 mg/dL LAB CHEMISTRY METHOD 11/03/2024 9:25 AM [facility] BUN 27(H) 5 - 25 mg/dL LAB CHEMISTRY METHOD 11/03/2024 9:25 AM [facility] Creatinine 1.25 0.70 - 1.30 mg/dL LAB CHEMISTRY METHOD 11/03/2024 9:25 AM [facility] eGFR 67 >=60 mL/min/1. 73m2 LAB CHEMISTRY METHOD 11/03/2024 9:25 AM [facility] Comment:Calculation based on the Chronic Kidney Disease Epidemiology Collaboration (CKD-EPI) equation refit without adjustment for race. BUN/Creatinine Ratio 21.6 LAB CHEMISTRY METHOD 11/03/2024 9:25 AM [facility] Calcium 9.1 8.5 - 10.5 mg/dL LAB CHEMISTRY METHOD 11/03/2024 9:25 AM [facility] AST (SGOT) 17 10 - 42 unit/L LAB CHEMISTRY METHOD 11/03/2024 9:25 AM [facility] ALT (SGPT) 20 10 - 60 unit/L LAB CHEMISTRY METHOD 11/03/2024 9:25 AM [facility] Alkaline Phosphatase 114 42 - 121 unit/L LAB CHEMISTRY METHOD 11/03/2024 9:25 AM [facility] Total Protein 6.5 6.0 - 8.0 g/dL LAB CHEMISTRY METHOD 11/03/2024 9:25 AM [facility] Albumin 3.4 3.2 - 5.0 g/dL LAB CHEMISTRY METHOD 11/03/2024 9:25 AM EDT [facility] Total Bilirubin 0.2 0.0 - 1.4 mg/dL LAB CHEMISTRY METHOD 11/03/2024 9:25 AM EDT [facility] Blood Venous blood specimen / Unknown 11/03/2024 7:05 AM EDT 11/03/2024 8:39 AM EDT Bryan Payne MD LAB BLOOD ORDERABLES Final Resul t Performing Organization Address [facility] Co de Phone Number [facility] [address] [place] [address], [place] [phone] * HIV 1,2 antibody, p24 antigen with reflex to differentiation (10/22/2024 6:59 AM EDT) Only the most recent of2 resultswithin the time period is included. HIV Combo AB/AG Negative Negative LAB CHEMISTRY METHOD 10/22/2024 10:41 PM EDT [facility] Blood Venous blood specimen / Unknown 10/22/2024 6:59 AM EDT 10/22/2024 9:01 AM EDT Narrative [facility] - 10/22/2024 10:41 PM EDT This assay is a 4th generation assay allowing for earlier detection of HIV infection by detecting the presence of the HIV-1 p24 antigen as well as the traditional antibodies to HIV type 1 (including group O) and type 2. Use of a 4th generation assay is the current CDC recommendation for HIV screening. Felicia Almonte MD LAB BLOOD ORDERABLES Grisel l Result Performing Organization Address City/[facility]/ZIP Co de Phone Number [facility] [address] [place] [address], [place] [phone] * Treponema pallidum antibody with reflex to RPR and particle agglutination (10/22/2024 6:59 AM EDT) Only the most recent of2 resultswithin the time period is included. T. Pallidum Antibodies Negative Negative LAB CHEMISTRY METHOD 10/22/2024 10:38 PM EDT [facility] Blood Venous blood specimen / Unknown 10/22/2024 6:59 AM EDT 10/22/2024 9:01 AM EDT Felicia Almonte MD LAB BLOOD ORDERABLES Grisel l Result Performing Organization Address City/[facility]/ZIP Co de Phone Number [facility] [address] [place] [address], [place] [phone] * White - K2EDTA (10/22/2024 6:59 AM EDT) Extra Tube Hold for add-ons. 10/22/2024 11:01 AM EDT [facility] Comment:Auto resulted. Blood Venous blood specimen / Unknown 10/22/2024 6:59 AM EDT 10/22/2024 9:01 AM EDT Felicia Almonte MD LAB BLOOD ORDERABLES Grisel l Result Performing Organization Address [facility] Co de Phone Number [facility] [address] [place] [address], [place] [phone] * SST tube (10/22/2024 6:59 AM EDT) Only the most recent of3 resultswithin the time period is included. Extra Tube Hold for add-ons. 10/22/2024 11:01 AM EDT [facility] Comment:Auto resulted. Blood Venous blood specimen / Unknown 10/22/2024 6:59 AM EDT 10/22/2024 9:01 AM EDT Felicia Almonte MD LAB BLOOD ORDERABLES Grisel l Result [facility] [address] [place] [address], [place] [phone] * (ABNORMAL) Hepatitis A antibody total with reflex IgM (10/22/2024 6:59 AM EDT) [facility] Hep A Total Ab Positive( A) Negative LAB CHEMISTRY METHOD 10/22/2024 12:04 PM EDT [facility] Blood Venous blood specimen / Unknown 10/22/2024 6:59 AM EDT 10/22/2024 9:01 AM EDT Narrative [facility] - 10/22/2024 12:04 PM EDT Over the counter supplements containing high doses of biotin may interfere with this assay. If interference is suspected, patients shoud be retested after refraining from biotin supplements for 72 hours. Felicia Almonte MD LAB BLOOD ORDERABLES Grisel addison Result Performing Organization Address City/[facility]/ZIP Co de Phone Number [facility] [address] [place] [address], [place] [phone] * Hepatitis C virus quantitative molecular study (10/22/2024 6:59 AM EDT) [facility] HCV Qual Interp Not Detected Not Detected LAB MOLECULAR DIAGNOSTICS METHOD 10/24/2024 12:43 PM EDT [facility] Comment:HCV RNA not detected , unable to report quantitative results. Blood Venous blood specimen / Unknown 10/22/2024 6:59 AM EDT 10/22/2024 8:57 AM EDT Bryan Payne MD LAB BLOOD ORDERABLES Final Resul t Performing Organization Address [facility]/State/ZIP Co de Phone Number [facility] [address] [place] [address], [place] [phone] * Lavender tube (10/22/2024 6:59 AM EDT) [facility] Extra Tube Hold for add-ons. 10/22/2024 11:01 AM EDT [facility] Comment:Auto resulted. Blood Venous blood specimen / Unknown 10/22/2024 6:59 AM EDT 10/22/2024 9:01 AM EDT Felicia Almonte MD LAB BLOOD ORDERABLES Grisel l Result Performing Organization Address [facility] de Phone Number [facility] [address] [place] [address], * Hepatitis A antibody IgM (10/22/2024 6:59 AM EDT) [facility] Hepatitis A Antibody IgM Negative Negative LAB CHEMISTRY METHOD 10/22/2024 1:55 PM EDT [facility] Blood Venous blood specimen / Unknown 10/22/2024 6:59 AM EDT 10/22/2024 9:01 AM EDT Narrative [facility] - 10/22/2024 1:55 PM EDT Over the counter supplements containing high doses of biotin may interfere with this assay. If interference is suspected, patients shoud be retested after refraining from biotin supplements for 72 hours. Felicia Almonte MD LAB BLOOD ORDERABLES Grisel l Result Performing Organization Address [facility] de Phone Number [facility] [address] [place] [address], * (ABNORMAL) Creatinine (10/22/2024 6:59 AM EDT) Only the most recent of2 resultswithin the time period is included. [facility] Creatinine 1.38(H) 0.70 - 1.30 mg/dL LAB CHEMISTRY METHOD 10/22/2024 9:37 PM EDT [facility] eGFR 60 >=60 mL/min/1. 73m2 LAB CHEMISTRY METHOD 10/22/2024 9:37 PM EDT [facility] Comment:Calculation based on the Chronic Kidney Disease Epidemiology Collaboration (CKD-EPI) equation refit without adjustment for race. Blood Venous blood specimen / Unknown 10/22/2024 6:59 AM EDT 10/22/2024 9:01 AM EDT Felicia Almonte MD LAB BLOOD ORDERABLES Grisel l Result Performing Organization Address City/[facility]/ZIP Co de Phone Number [facility] [address] [place] [address], [place] [phone] * (ABNORMAL) Hepatitis B surface antibody (10/22/2024 6:59 AM EDT) Only the most recent of2 resultswithin the time period is included. Hepatitis B Surface Ab Positive (A) Negative LAB CHEMISTRY METHOD 10/22/2024 10:02 PM EDT [facility] Hepatitis B Surface Ab Quantitative >1,000.0 mIU/mL LAB CHEMISTRY METHOD 10/22/2024 10:02 PM EDT [facility] Blood Venous blood specimen / Unknown 10/22/2024 6:59 AM EDT 10/22/2024 9:01 AM EDT Narrative [facility] - 10/22/2024 10:02 PM EDT >=10 mIU/mL is considered to be consistent with immunity. us Felicia Almonte MD LAB BLOOD ORDERABLES Grisel l Result Performing Organization Address City/[facility]/ZIP Co de Phone Number [facility] [address] [place] [address], [place] [phone] * Prothrombin time with INR (10/22/2024 6:59 AM EDT) Only the most recent of2 resultswithin the time period is included. Protime 12.8 10.6 - 13.9 sec LAB COAGULATION METHOD 10/22/2024 5:19 PM EDT [facility] INR 1.0 LAB COAGULATION METHOD 10/22/2024 5:19 PM EDT [facility] Blood Venous blood specimen / Unknown 10/22/2024 6:59 AM EDT 10/22/2024 3:12 PM EDT Felicia Almonte MD LAB BLOOD ORDERABLES Grisel l Result [facility] [address] [place] [address], [place] [phone] * Bilirubin, total and direct (10/22/2024 6:59 AM EDT) Only the most recent of2 resultswithin the time period is included. Total Bilirubin 0.3 0.0 - 1.4 mg/dL LAB CHEMISTRY METHOD 10/22/2024 9:37 PM EDT [facility] Bilirubin, Direct 0.1 0.0 - 0.3 mg/dL LAB CHEMISTRY METHOD 10/22/2024 9:37 PM EDT [facility] Bilirubin, Indirect 0.2 0.0 - 1.1 mg/dL LAB CHEMISTRY METHOD 10/22/2024 9:37 PM EDT [facility] Blood Venous blood specimen / Unknown 10/22/2024 6:59 AM EDT 10/22/2024 9:01 AM EDT Felicia Almonte MD LAB BLOOD ORDERABLES Grisel l Result [facility] [address] [place] [address], [place] [phone] * Alanine aminotransferase (10/22/2024 6:59 AM EDT) Only the most recent of2 resultswithin the time period is included. ALT (SGPT) 23 10 - 60 unit/L LAB CHEMISTRY METHOD 10/22/2024 9:37 PM EDT [facility] Blood Venous blood specimen / Unknown 10/22/2024 6:59 AM EDT 10/22/2024 9:01 AM EDT Felicia Almonte MD LAB BLOOD ORDERABLES Grisel l Result Performing Organization Address City/[facility]/ZIP Co de Phone Number [facility] [address] [place] [address], * Aspartate aminotransferase (10/22/2024 6:59 AM EDT) Only the most recent of2 resultswithin the time period is included. AST (SGOT) 23 10 - 42 unit/L LAB CHEMISTRY METHOD 10/22/2024 9:37 PM EDT [facility] Comment:Hemolysis present Blood Venous blood specimen / Unknown 10/22/2024 6:59 AM EDT 10/22/2024 9:01 AM EDT Felicia Almonte MD LAB BLOOD ORDERABLES Grisel l Result Performing Organization Address [facility] Co de Phone Number [facility] [address] [place] [address], [place] [phone] * Albumin (10/22/2024 6:59 AM EDT) Only the most recent of2 resultswithin the time period is included. Albumin 3.7 3.2 - 5.0 g/dL LAB CHEMISTRY METHOD 10/22/2024 9:37 PM EDT [facility] Blood Venous blood specimen / Unknown 10/22/2024 6:59 AM EDT 10/22/2024 9:01 AM EDT us Felicia Almonte MD LAB BLOOD ORDERABLES Grisel l Result Performing Organization Address City/[facility]/ZIP Co de Phone Number [facility] [address] [place] [address], [place] [phone] from Last 3 Months Insurance [facility] Member Subscriber Plan / Payer (Ef fective 2024-Present) Name:Estevan Rodriguez Relation to Subscriber:Self Name:Estevan Rodriguez Payer ID:[id number] Group ID:Not on file Type:Not on file Address: [address] [address] Care Teams Report Developer Relationship Specialty Start Date End Date Bryan Payne MD [address] [place] [address] Dr [address] [place] PCP - General Internal Medicine 08/20/24
--- OUTSIDE RECORDS SUMMARY | 2025-01-12 13:00 | XMS_ITS | Clinical Summary ---
Author Organization [facility] Address [address] [address] Phone Care Team Providers Care Chain Maker Loom Control Name Role Phone Unavailable Primary Care Provider Unavailabl e Allergies Active Allergy Reactions Criticality Noted Date Comments Penicillins 10/01/2024 Medications Albuterol Sulfate 108 (90 Base) MCG/ACT aerosol powder Inhale Activ e apixaban (ELIQUIS) 2.5 MG tablet Take 5 mg by mouth in the morning and 5 mg in the evening. Active ascorbic acid (VITAMIN C) 250 MG tablet Take 250 mg by mouth 1 (one) time each day Active atorvastatin (LIPITOR) 40 MG tablet Take 40 mg by mouth 1 (one) time each day Active baclofen (LIORESAL) 10 MG tablet Take 10 mg by mouth in the morning and 10 mg in the evening and 10 mg before bedtime. Active DULoxetine HCl 40 MG capsule delayed-release particles Take by mouth Active acetaminophen (TYLENOL) 325 MG tablet Take by mouth every 6 (six) hours if needed for mild pain Active finasteride (PROSCAR) 5 MG tablet Take 5 mg by mouth 1 (one) time each day Do not crush, chew, or split. Active insulin aspart (NovoLOG) 100 UNIT/ML patient supplied pump Inject under the skin continuously Active insulin glargine (LANTUS) 100 UNIT/ML injection Inject under the skin every night Active Melatonin 5 MG tablet Take by mouth Active Multiple Vitamin (multivitamin) tablet Take 1 tablet by mouth 1 (one) time each day Active omeprazole (PriLOSEC) [address] capsule Take 40 mg by mouth 1 (one) time each day Do not crush or chew. Active Naloxone HCl (NARCAN NA) Administer into affected nostril(s) Active ondansetron (ZOFRAN) 4 MG tablet Take 4 mg by mouth every 8 (eight) hours if needed for nausea or vomiting Active polyethylene glycol (GLYCOLAX) 17 g packet Take 17 g by mouth 1 (one) time each day Active prazosin (MINIPRESS) 1 MG capsule Take 1 mg by mouth every night Active risperiDONE (RisperDAL) 1 MG tablet Take 1 mg by mouth in the morning and 1 mg in the evening. 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 10/01/2024 Other specified arthritis, right ankle and foot 10/01/2024 Benign prostatic hyperplasia with lower urinary tract symptom 10/01/2024 Other bipolar disorder 10/01/2024 Occlusion and stenosis of right carotid artery 0 10/01/2024 Stage 3a chronic kidney disease 10/01/2024 Renal osteodystrophy 10/01/2024 Type 1 diabetes mellitus wit h diabetic chronic kidney disease Diabetes mellitus without me ntion of complication, type II or unspecified type, not stated as uncontrolled Esophageal reflux Chronic viral hepatitis C Hyperglycemia Other and unspecified hyperlipidemia Encounters Date Type Department Care Team Description 12/14/2024 Orders Only [facility] [address] [phone] Sai Vasquez MD 11/18/2024 11:00 AM EDT Office Visit [facility] [address] [place] [phone] Annemarie Andre ARNP Stage 3a chronic kidney disease (HCC) (Primary Dx); Hypertension 11/18/2024 Office Communication [facility] [address] [phone] Annemarie Andre ARNP from Last 3 Months Social History Tobacco Use Types Packs/Day Years Used Date Smoking Tobacco: Every Day Cigarettes Smokeless Tobacco: Never Tobacco Cessation:Ready to Q uit: Not Asked; Counseling Given: Not Answered Alcohol Use Standard Drinks/Week Comments Not Currently 0 (1 standard drink = 0.6 oz pur e alcohol) Sex and Gender Information Value Date Recorded Sex Assigned at Not on file Legal Sex Male 9:21 AM EDT Gender Identity Not on file Sexual Orientation Not on file Last Filed Vital Signs Vital Sign Reading Time Taken Comments Blood Pressure 120/78 11/18/2024 11:44 AM EDT Pulse 65 11/18/2024 11:44 AM EDT Temperature - - Respiratory Rate - - Oxygen Saturation 98% 10/01/2024 11:25 AM EDT Inhaled Oxygen Concentration - - Weight 80.7 kg (178 lb) 11/18/2024 11:44 AM EDT Height - - Body Mass Index - - Plan of Treatment Upcoming Encounters Date Type Department Care Team (Late st Contact Info) Description 02/11/2025 10:00 AM EDT Office Visit [facility] [address] [phone] Sai Vasquez MD [address] [phone] Health Maintenance Due Date Last Done Comments Hepatitis B Vaccine (1 of 3 - 19+ 3-dose series) 10/14/1986 Pneumococcal Vaccine: 50+ Ye ars (1 of 2 - PCV) 10/14/1986 Colorectal Cancer Screening: Annual FOBT 10/14/2016 Colorectal Cancer Screening: Colonoscopy 10/14/2016 Colorectal Cancer Screening: Sigmoidoscopy 10/14/2016 Diabetes: Ophthalmology Exam 09/28/2024 Diabetes: Pedal Pulse Checked 09/28/2024 Diabetes: Sensory Foot Exam 09/28/2024 Diabetes: Visual Foot Exam 09/28/2024 Influenza Vaccine (#1) 2025 Diabetes: Hemoglobin A1C 03/01/2025 025, 08/20/2024, 08/04/2024 Procedures Procedure Name Priority Date/Time Associated Diagnosis Comments PROTEIN ELECTROPHORESIS INTERPRETATION, SERUM (HC) Routine 12/14/2024 8:53 AM EDT FREE [place] LAMBDA LIGHT CHAINS, QUANT, SERUM Routine 12/14/2024 8:53 AM EDT HUYEN IFA SCREEN W/REFLEX TO TITER AND PATTERN Routine 12/14/2024 8:53 AM EDT AST, ALT, BILIRUBIN Routine 12/14/2024 8 :53 AM EDT HEP C ANTIBODY #2 - HC Routine 8:53 AM EDT HEPATITIS B SURFACE ANTIGEN W/REFL CONFIRM Routine 12/14/2024 8:53 AM EDT HEPATITIS B SURFACE AB (HC) Routine 12/14/2024 8:53 AM EDT PROTEIN, TOTAL, SERUM Routine 12/14/2024 8:53 AM EDT C4 COMPLEMENT Routine 12/14/2024 8:53 AM EDT Stage 3a chronic kidney disease (HCC) Renal osteodystrophy C3 COMPLEMENT Routine 12/14/2024 8:53 AM EDT Stage 3a chronic kidney disease (HCC) Renal osteodystrophy HEPATITIS B CORE ANTIBODY, IGM Routine 12/14/2024 8:53 AM EDT Stage 3a chronic kidney disease (HCC) Renal osteodystrophy PROTEIN ELECTROPHORESIS, SERUM Routine 12/14/2024 8:53 AM EDT Stage 3a chronic kidney disease (HCC) Renal osteodystrophy MAGNESIUM Routine 12/14/2024 8:53 AM EDT Stage 3a chronic kidney disease (HCC) Renal osteodystrophy CBC Routine 12/14/2024 8:53 AM EDT Stage 3a chronic kidney disease (HCC) Renal osteodystrophy VITAMIN D 25 HYDROXY Routine 12/14/2024 8:53 AM EDT Stage 3a chronic kidney disease (HCC) Renal osteodystrophy RENAL FUNCTION PANEL Routine 12/14/2024 8:53 AM EDT Stage 3a chronic kidney disease (HCC) Renal osteodystrophy PTH, INTACT Routine 12/14/2024 8:53 AM EDT Stage 3a chronic kidney disease (HCC) Renal osteodystrophy from Last 3 Months Results * AST, ALT, BILIRUBIN (12/14/2024 8:53 AM EDT) Platelets 328 K/mcL [facility] 12/14/2024 8:53 AM EDT 12/14/2024 10:45 AM EDT Sai Vasquez MD LAB BLOOD ORDERABLES Final Re sult Performing Organization Address [facility] Co de Phone Number [facility] [address] [place] [address] * (ABNORMAL) Hep C Antibody (12/14/2024 8:53 AM EDT) [facility] Hep C Ab Positive( A) Negative [facility] Comment:If confirmation of t his positive HCV Ab screening test is needed, please redraw and order HCV Viral Load. Note--> This test may not be added on due to different specimen requirements. 12/14/2024 8:53 AM EDT 12/14/2024 10:45 AM EDT Sai Vasquez MD LAB BLOOD ORDERABLES Final Re sult Performing Organization Address City/[facility]/ZIP Co de Phone Number [facility] [address] [place] [address] * (ABNORMAL) Hepatitis B Surface AB (12/14/2024 8:53 AM EDT) Hep B Surface Antibody Positive( A) Negative [facility] Hep B Surface Ab >1000.0 mIU/mL [facility] 12/14/2024 8:53 AM EDT 12/14/2024 10:45 AM EDT Narrative MAN - 12/14/2024 1:35 PM EDT >=10 mIU/mL is considered to be consistent with immunity. Sai Vasquez MD LAB [id number] SOLICITED RESULTS Final Result Performing Organization Address City/[facility]/ZIP Co de Phone Number [facility] [address] [place] [address] * Protein Electrophoresis Interpretation, Serum (12/14/2024 8:53 AM EDT) Pathologist Interpretation [facility] 12/14/2024 8:53 AM EDT 12/14/2024 10:45 AM EDT Sai Vasquez MD LAB [id number] SOLICITED RESULTS Final Result Performing Organization Address City/[facility]/ZIP Co de Phone Number [facility] [address] [place] [address] * (ABNORMAL) Free [place] Lambda Light Chain, QN (12/14/2024 8:53 AM EDT) Free [place] Lt Chains, S 2.81(H) 0.33 - 1.94 mg/dL [facility] Free Lambda Lt Chains, S 1.82 0.57 - 2.63 mg/dL [facility] [place]/Lambda LC Ratio 1.54 0.26 - 1.65 [facility] Comment: Test performed at [facility], [address] , [place] [address] Dana Moreno MD, PhD - Manager Of Internal 12/14/2024 8:53 AM EDT 12/14/2024 11:14 AM EDT Sai Vasquez MD LAB BLOOD ORDERABLES Final Re sult [facility] [address] [place] [address] * Hepatitis B Surface Ag w/Reflex Confirmation (12/14/2024 8:53 AM EDT) Hep B Surface Ag Negative Negative [facility] 12/14/2024 8:53 AM EDT 12/14/2024 10:45 AM EDT Narrative MAN - 12/14/2024 1:45 PM EDT Over the counter supplements containing high doses of biotin may interfere with this assay. If interference is suspected, patients shoud be retested after refraining from biotin supplements for 72 hours. Sai Vasquez MD LAB BLOOD ORDERABLES Final Re sult Performing Organization Address [facility] de Phone Number [facility] [address] [place] [address] * HUYEN IFA Screen s/Reflex to Titer and Pattern (12/14/2024 8:53 AM EDT) HUYEN Negative Negative [facility] 12/14/2024 8:53 AM EDT 12/14/2024 10:45 AM EDT Sai Vasquez MD LAB BLOOD ORDERABLES Final Re sult Performing Organization Address [facility] Co de Phone Number [facility] [address] [place] [address] * Hepatitis B core antibody, IgM (12/14/2024 8:53 AM EDT) Hep B Core IgM Negative Negative [facility] Blood specimen (specimen) Venous blood / Unknown 12/14/2024 8:53 AM EDT 12/14/2024 10:45 AM EDT Narrative MAN - 12/14/2024 2:13 PM EDT Over the counter supplements containing high doses of biotin may interfere with this assay. If interference is suspected, patients shoud be retested after refraining from biotin supplements for 72 hours. Sai Vasquez MD LAB BLOOD ORDERABLES Final Re sult Performing Organization Address [facility]/ZIP Co de Phone Number [facility] [address] [place] [address] * (ABNORMAL) Vitamin D 25 Hydroxy (12/14/2024 8:53 AM EDT) Pathologist [facility] Vitamin D, 25-OH, Total 22.3(L) 30.0 - 80.0 ng/mL [facility] Blood specimen (specimen) Venous blood / Unknown 12/14/2024 8:53 AM EDT 12/14/2024 10:45 AM EDT Sai Vasquez MD LAB BLOOD ORDERABLES Final Re sult Performing Organization Address [facility] Co de Phone Number [facility] [address] [place] [address] * (ABNORMAL) CBC (12/14/2024 8:53 AM EDT) WBC 8.9 4.8 - 10.8 K/[facility] RBC 4.50 4.50 - 5.50 M/[facility] Hgb 13.3(L) 13.5 - 17.5 g/dL [facility] Hematocrit 40.3(L) 42.0 - 54.0 % [facility] MCV 90.6 79.0 - 98.0 FL [facility] MCH 29.9 27.0 - 32.0 pcg [facility] MCHC 33.0 32.0 - 37.0 g/dL [facility] RDW 12.7 11.0 - 15.0 % [facility] Platelets 328 130 - 400 K/[facility] MPV 10.4 7.0 - 11.0 FL [facility] nRBC Count 0.0 <1.0 % [facility] NRBC Absolute 0.00 <0.10 K/[facility] Blood specimen (specimen) Venous blood / Unknown 12/14/2024 8:53 AM EDT 12/14/2024 10:47 AM EDT Sai Vasquez MD LAB BLOOD ORDERABLES Final Re sult Performing Organization Address City/[facility]/ZIP Co de Phone Number [facility] [address] [place] [address] * C3 Complement (12/14/2024 8:53 AM EDT) C3 Complement 137 88 - 201 mg/dL [facility] Blood specimen (specimen) Venous blood / Unknown 12/14/2024 8:53 AM EDT 12/14/2024 10:45 AM EDT Sai Vasquez MD LAB BLOOD ORDERABLES Final Re sult [facility] [address] [place] [address] * C4 Complement (12/14/2024 8:53 AM EDT) C4 Complement 34 16 - 47 mg/dL [facility] Blood specimen (specimen) Venous blood / Unknown 12/14/2024 8:53 AM EDT 12/14/2024 10:45 AM EDT Sai Vasquez MD LAB BLOOD ORDERABLES Final Re sult Performing Organization Address [facility] Co de Phone Number [facility] [address] [place] [address] * Protein electrophoresis, serum (12/14/2024 8:53 AM EDT) Total Protein 7.0 6.0 - 8.0 g/dL [facility] Albumin 3.5 2.9 - 4.1 g/dL [facility] Uzgkt-8-Hafqknie 0.2 0.1 - 0.5 g/dL [facility] Ivgkq-5-Iqcmfzlh 1.1 0.7 - 1.5 g/dL [facility] Beta Globulin 1.2 0.7 - 1.5 g/dL [facility] Gamma Globulin in Serum 1.0 0.7 - 1.9 g/dL [facility] SPEP Interpretation No M-Shaq seen. Essentially normal pattern. [facility] Blood specimen (specimen) Venous blood / Unknown 12/14/2024 8:53 AM EDT 12/14/2024 10:45 AM EDT Sai Vasquez MD LAB BLOOD ORDERABLES Final Re sult Performing Organization Address [facility] Co de Phone Number [facility] [address] [place] [address] * Protein, total (12/14/2024 8:53 AM EDT) Total Protein 7.0 6.0 - 8.0 g/dL [facility] 12/14/2024 8:53 AM EDT 12/14/2024 10:45 AM EDT Sai Vasquez MD LAB BLOOD ORDERABLES Final Re sult Performing Organization Address [facility] de Phone Number [facility] [address] [place] [address] * PTH, Intact (12/14/2024 8:53 AM EDT) Pathologist [facility] PTH 28.1 18.5 - 88.0 pcg/mL [facility] Blood specimen (specimen) Venous blood / Unknown 12/14/2024 8:53 AM EDT 12/14/2024 10:45 AM EDT Sai Vasquez MD LAB BLOOD ORDERABLES Final Re sult Performing Organization Address [facility] de Phone Number [facility] [address] [place] [address] * Magnesium (12/14/2024 8:53 AM EDT) [facility] Magnesium 1.9 1.9 - 2.6 mg/dL [facility] Blood specimen (specimen) Venous blood / Unknown 12/14/2024 8:53 AM EDT 12/14/2024 10:45 AM EDT Sai Vasquez MD LAB BLOOD ORDERABLES Final Re sult Performing Organization Address [facility] de Phone Number [facility] [address] [place] [address] * (ABNORMAL) Renal Function Panel (12/14/2024 8:53 AM EDT) Pathologist [facility] Sodium 143 133 - 145 mmol/L [facility] Potassium 3.5 3.5 - 5.5 mmol/L [facility] Chloride 110 96 - 110 mmol/L [facility] Bicarbonate (CO2) 27 21 - 32 mmol/L [facility] Anion Gap 6 3 - 11 [facility] Glucose 25(LL) 70 - 100 mg/dL [facility] BUN 19 5 - 25 mg/dL [facility] Creatinine Serum 1.05 0.70 - 1.30 mg/dL [facility] eGFR 83 >=60 mL/min/1. 73m2 [facility] Comment:Calculation based on the Chronic Kidney Disease Epidemiology Collaboration (CKD-EPI) equation refit without adjustment for race. BUN/Creatinine Ratio 18.1 [facility] Albumin 3.9 3.2 - 5.0 g/dL [facility] Calcium 9.1 8.5 - 10.5 mg/dL [facility] Phosphorus 3.6 2.5 - 4.5 mg/dL [facility] Blood specimen (specimen) Venous blood / Unknown 12/14/2024 8:53 AM EDT 12/14/2024 10:45 AM EDT Sai Vasquez MD LAB BLOOD ORDERABLES Final Re sult MAN [facility] [address] [place] [address] from Last 3 Months Insurance [facility]
== END 2025-01-12 12:20 | disposition home or self-care (01) ==
LOC: HO.US 12:19
PROVIDERS: Visit Provider Hospitalist
DX: N17.9 Acute kidney failure, unspecified (principal); N18.30 Chronic kidney disease, stage 3 unspecified
CPT/HCPCS: 76770

== ENCOUNTER → 2025-01-12 12:45 | Outpatient (BNV) | payer MEDICAID, SELFPAY | PROVIDERS: Visit Provider Radiology Diagnostic Radiology | DX: R33.8 Other retention of urine (principal) | CPT/HCPCS: 76770 ==

== ENCOUNTER 2025-01-14 09:52 | Outpatient (REF) | payer MEDICAID, SELFPAY ==
--- OUTSIDE RECORDS SUMMARY | 2025-01-14 10:10 | XMS_ITS | Clinical Summary ---
Author Organization [facility] Address [address] [phone] Phone Care Team Providers Care Event Representative Name Role Phone Unavailable Primary Care Provider [...] Orders Only [facility] [address] [phone] Sai Vasquez MD 11/18/2024 11:00 AM EDT Office Visit [facility] [address] [place] [phone] Annemarie Andre ARNP Stage 3a chronic kidney disease (HCC) (Primary Dx); Hypertension 11/18/2024 Office Communication [facility] [address] [phone] Annemarie Andre ARNP from Last 3 Months [...] Office Visit [facility] [address] [phone] Sai Vasquez MD [address] [phone] Health Maintenance Due Date Last Done Comments [...] (12/14/2024 8:53 AM EDT) Platelets 328 K/mcL [facility] 12/14/2024 8:53 AM EDT 12/14/2024 10:45 AM EDT Sai Vasquez MD LAB BLOOD ORDERABLES Final Re sult Performing Organization Address [facility] Co de Phone Number [facility] [address] [place] [address] * (ABNORMAL) Hep C Antibody (12/14/2024 8:53 AM EDT) [facility] Hep C Ab Positive( A) Negative [facility] Comment:If confirmation of t his positive HCV Ab screening test is needed, please redraw and order HCV Viral Load. Note--> This test may not be added on due to different specimen requirements. 12/14/2024 8:53 AM EDT 12/14/2024 10:45 AM EDT Sai Vasquez MD LAB BLOOD ORDERABLES Final Re sult Performing Organization Address City/[facility]/ZIP Co de Phone Number [facility] [address] [place] [address] * (ABNORMAL) Hepatitis B Surface AB (12/14/2024 8:53 AM EDT) Hep B Surface Antibody Positive( A) Negative [facility] Hep B Surface Ab >1000.0 mIU/mL [facility] 12/14/2024 8:53 AM EDT 12/14/2024 10:45 AM EDT Narrative MAN - 12/14/2024 1:35 PM EDT >=10 mIU/mL is considered to be consistent with immunity. Sai Vasquez MD LAB [id number] SOLICITED RESULTS Final Result Performing Organization Address City/[facility]/ZIP Co de Phone Number [facility] [address] [place] [address] * Protein Electrophoresis Interpretation, Serum (12/14/2024 8:53 AM EDT) Pathologist Interpretation [facility] 12/14/2024 8:53 AM EDT 12/14/2024 10:45 AM EDT Sai Vasquez MD LAB [id number] SOLICITED RESULTS Final Result Performing Organization Address City/[facility]/ZIP Co de Phone Number [facility] [address] [place] [address] * (ABNORMAL) Free [place] Lambda Light Chain, QN (12/14/2024 8:53 AM EDT) Free [place] Lt Chains, S 2.81(H) 0.33 - 1.94 mg/dL [facility] Free Lambda Lt Chains, S 1.82 0.57 - 2.63 mg/dL [facility] [place]/Lambda LC Ratio 1.54 0.26 - 1.65 [facility] Comment: Test performed at [facility], [address] , [place] [address] Dana Moreno MD, PhD - [employer] 12/14/2024 8:53 AM EDT 12/14/2024 11:14 AM EDT Sai Vasquez MD LAB BLOOD ORDERABLES Final Re sult [facility] [address] [place] [address] * Hepatitis B Surface Ag w/Reflex Confirmation (12/14/2024 8:53 AM EDT) Hep B Surface Ag Negative Negative [facility] 12/14/2024 8:53 AM EDT 12/14/2024 10:45 AM EDT Narrative MAN - 12/14/2024 1:45 PM EDT Over the counter supplements containing high doses of biotin may interfere with this assay. If interference is suspected, patients shoud be retested after refraining from biotin supplements for 72 hours. Sai Vasquez MD LAB BLOOD ORDERABLES Final Re sult Performing Organization Address [facility] de Phone Number [facility] [address] [place] [address] * HUYEN IFA Screen s/Reflex to Titer and Pattern (12/14/2024 8:53 AM EDT) HUYEN Negative Negative [facility] 12/14/2024 8:53 AM EDT 12/14/2024 10:45 AM EDT Sai Vasquez MD LAB BLOOD ORDERABLES Final Re sult Performing Organization Address [facility] Co de Phone Number [facility] [address] [place] [address] * Hepatitis B core antibody, IgM (12/14/2024 8:53 AM EDT) Hep B Core IgM Negative Negative [facility] Blood specimen (specimen) Venous blood [...] ORDERABLES Final Re sult Performing Organization Address [facility]/ZIP Co de Phone Number [facility] [address] [place] [address] * (ABNORMAL) Vitamin D 25 Hydroxy (12/14/2024 8:53 AM EDT) Pathologist [facility] Vitamin D, 25-OH, Total 22.3(L) 30.0 - 80.0 ng/mL [facility] Blood specimen (specimen) Venous blood / Unknown 12/14/2024 8:53 AM EDT 12/14/2024 10:45 AM EDT Sai Vasquez MD LAB BLOOD ORDERABLES Final Re sult Performing Organization Address [facility] Co de Phone Number [facility] [address] [place] [address] * (ABNORMAL) CBC (12/14/2024 8:53 AM EDT) WBC 8.9 4.8 - 10.8 [facility] RBC 4.50 4.50 - 5.50 M/[facility] Hgb 13.3(L) 13.5 - 17.5 g/dL [facility] Hematocrit 40.3(L) 42.0 - 54.0 % [facility] MCV 90.6 79.0 - 98.0 FL [facility] MCH 29.9 27.0 - 32.0 pcg [facility] MCHC 33.0 32.0 - 37.0 g/dL [facility] RDW 12.7 11.0 - 15.0 % [facility] Platelets 328 130 - 400 K/[facility] MPV 10.4 7.0 - 11.0 FL [facility] nRBC Count 0.0 <1.0 % [facility] NRBC Absolute 0.00 <0.10 [facility] Blood specimen (specimen) Venous blood / Unknown 12/14/2024 8:53 AM EDT 12/14/2024 10:47 AM EDT Sai Vasquez MD LAB BLOOD ORDERABLES Final Re sult Performing Organization Address City/[facility]/ZIP Co de Phone Number [facility] [address] [place] [address] * C3 Complement (12/14/2024 8:53 AM EDT) C3 Complement 137 88 - 201 mg/dL [facility] Blood specimen (specimen) Venous blood / Unknown 12/14/2024 8:53 AM EDT 12/14/2024 10:45 AM EDT Sai Vasquez MD LAB BLOOD ORDERABLES Final Re sult [facility] [address] [place] [address] * C4 Complement (12/14/2024 8:53 AM EDT) C4 Complement 34 16 - 47 mg/dL [facility] Blood specimen (specimen) Venous blood / Unknown 12/14/2024 8:53 AM EDT 12/14/2024 10:45 AM EDT Sai Vasquez MD LAB BLOOD ORDERABLES Final Re sult Performing Organization Address [facility] Co de Phone Number [facility] [address] [place] [address] * Protein electrophoresis, serum (12/14/2024 8:53 AM EDT) Total Protein 7.0 6.0 - 8.0 g/dL [facility] Albumin 3.5 2.9 - 4.1 g/dL [facility] Tmfno-1-Fsvfwlsc 0.2 0.1 - 0.5 g/dL [facility] Daxbi-4-Xkzwbbmw 1.1 0.7 - 1.5 g/dL [facility] Beta Globulin 1.2 0.7 - 1.5 g/dL [facility] Gamma Globulin in Serum 1.0 0.7 - 1.9 g/dL [facility] SPEP Interpretation No M-Shaq seen. Essentially normal pattern. [facility] Blood specimen (specimen) Venous blood / Unknown 12/14/2024 8:53 AM EDT 12/14/2024 10:45 AM EDT Sai Vasquez MD LAB BLOOD ORDERABLES Final Re sult Performing Organization Address [facility] Co de Phone Number [facility] [address] [place] [address] * Protein, total (12/14/2024 8:53 AM EDT) Total Protein 7.0 6.0 - 8.0 g/dL [facility] 12/14/2024 8:53 AM EDT 12/14/2024 10:45 AM EDT Sai Vasquez MD LAB BLOOD ORDERABLES Final Re sult Performing Organization Address [facility] de Phone Number [facility] [address] [place] [address] * PTH, Intact (12/14/2024 8:53 AM EDT) Pathologist [facility] PTH 28.1 18.5 - 88.0 pcg/mL [facility] Blood specimen (specimen) Venous blood / Unknown 12/14/2024 8:53 AM EDT 12/14/2024 10:45 AM EDT Sai Vasquez MD LAB BLOOD ORDERABLES Final Re sult Performing Organization Address [facility] de Phone Number [facility] [address] [place] [address] * Magnesium (12/14/2024 8:53 AM EDT) [facility] Magnesium 1.9 1.9 - 2.6 mg/dL [facility] Blood specimen (specimen) Venous blood / Unknown 12/14/2024 8:53 AM EDT 12/14/2024 10:45 AM EDT Sai Vasquez MD LAB BLOOD ORDERABLES Final Re sult Performing Organization Address [facility] de Phone Number [facility] [address] [place] [address] * (ABNORMAL) Renal Function Panel (12/14/2024 8:53 AM EDT) Pathologist [facility] Sodium 143 133 - 145 mmol/L [facility] Potassium 3.5 3.5 - 5.5 mmol/L [facility] Chloride 110 96 - 110 mmol/L [facility] Bicarbonate (CO2) 27 21 - 32 mmol/L [facility] Anion Gap 6 3 - 11 [facility] Glucose 25(LL) 70 - 100 mg/dL [facility] BUN 19 5 - 25 mg/dL [facility] Creatinine Serum 1.05 0.70 - 1.30 mg/dL [facility] eGFR 83 >=60 mL/min/1. 73m2 [facility] Comment:Calculation based on the Chronic Kidney Disease Epidemiology Collaboration (CKD-EPI) equation refit without adjustment for race. BUN/Creatinine Ratio 18.1 [facility] Albumin 3.9 3.2 - 5.0 g/dL [facility] Calcium 9.1 8.5 - 10.5 mg/dL [facility] Phosphorus 3.6 2.5 - 4.5 mg/dL [facility] Blood specimen (specimen) Venous blood / Unknown 12/14/2024 8:53 AM EDT 12/14/2024 10:45 AM EDT Sai Vasquez MD LAB BLOOD ORDERABLES Final Re sult MAN [facility] [address] [place] [address] from Last 3 Months Insurance [facility]
--- OUTSIDE RECORDS SUMMARY | 2025-01-14 10:10 | XMS_ITS | Clinical Summary ---
Author Organization 299 [facility] Address [address] [place] [address] Phone Care Team Providers Care Yarn Finisher Name Role Phone Bryan Payne MD Primary Care Provider [phone] Encounters Date Type Department Care Team Description 11/29/2024 Lab Requisition [facility] [address] [place] [address] Bryan Payne MD Type 1 diabetes mellitus with diabetic polyneuropathy ([facility]/HCC V24, CMS/HCC V28) 11/03/2024 Lab Requisition [facility] [address] [place] [address] Bryan Payne MD Chronic kidney disease, stage 3a (CMS/HCC V24, CMS/HCC V28); Other hyperlipidemia; Anemia, unspecified; Benign prostatic hyperplasia with lower urinary tract symptoms; Encounter for other specified special examinations 10/22/2024 Lab Requisition [facility] [address] [place] [id number] Felicia Almonte MD Chronic viral hepatitis C ([facility]/HCC V24, CMS/HCC V28) 10/22/2024 Lab Requisition [facility] [address] [place] [phone] Bryan Payne MD Chronic viral hepatitis C [...] Procedure Name Priority Date/Time Associated Diagnosis Comments [place] PROTEIN ELECTROPHORETIC FRACTIONATION & QUANTITATION SERUM Routine [...] C antibody (12/14/2024 8:53 AM EDT) Pathologist [facility] Hepatitis C Antibody Positive (A) Negative LAB CHEMISTRY METHOD 12/14/2024 2:12 PM EDT [facility] Comment:If confirmation of t his positive HCV Ab screening test is needed, please redraw and order HCV Viral Load. Note--> This test may not be added on due to different specimen requirements. Blood Venous blood specimen / Unknown Venipuncture / Unknown 12/14/2024 8:53 AM EDT 12/14/2024 10:45 AM EDT Sai Vasquez MD LAB BLOOD ORDERABLES Final Re sult Performing Organization Address [facility] Co de Phone Number [facility] [address] [place] [address], [place] [phone] * Hepatitis B surface antigen with reflex to confirmation (12/14/2024 8:53 AM EDT) Only the most recent of3 resultswithin the time period is included. [facility] Hepatitis B Surface Ag Negative Negative LAB CHEMISTRY METHOD 12/14/2024 1:45 PM EDT [facility] Blood Venous blood specimen / Unknown Venipuncture / Unknown 12/14/2024 8:53 AM EDT 12/14/2024 10:45 AM EDT Narrative [facility] - 12/14/2024 1:45 PM EDT Over the counter supplements containing high doses of biotin may interfere with this assay. If interference is suspected, patients shoud be retested after refraining from biotin supplements for 72 hours. Sai Vasquez MD LAB BLOOD ORDERABLES Final Re sult Performing Organization Address [facility]/ZIP Co de Phone Number [facility] [address] [place] [address], [place] [phone] * PATHOLOGIST REVIEW PROTEIN ELECTROPHORESIS (12/14/2024 8:53 AM EDT) [facility] Pathologist Interpretation 12/16/2024 2:35 PM EDT [facility] Blood Venous blood specimen / Unknown Venipuncture / Unknown 12/14/2024 8:53 AM EDT 12/14/2024 10:45 AM EDT Sai Vasquez MD LAB BLOOD ORDERABLES Final Re sult Performing Organization Address City/[facility]/ZIP Co de Phone Number [facility] [address] [place] [address], [place] [phone] * AST, ALT, Bilirubin ELR state reportables (12/14/2024 8:53 AM EDT) Pathologist [facility] Platelets 328 K/mcL LAB HEMETOLOGY METHOD 12/14/2024 2:33 PM EDT [facility] Blood Venous blood specimen / Unknown Venipuncture / Unknown 12/14/2024 8:53 AM EDT 12/14/2024 10:45 AM EDT us Sai Vasquez MD LAB BLOOD ORDERABLES Final Re sult Performing Organization Address [facility]/ZIP Co de Phone Number [facility] [address] [place] [address], [place] [phone] * (ABNORMAL) [place]-lambda free light chains, quantitative (12/14/2024 8:53 AM EDT) [place] Free Light Chain 2.81(H) 0.33 - 1.94 mg/dL 12/16/2024 12:42 PM EDT [facility] Lambda Free Light Chain 1.82 0.57 - 2.63 mg/dL 12/16/2024 12:42 PM EDT [facility] [place]/Lambda FLC Ratio 1.54 0.26 - 1.65 12/16/2024 12:42 PM EDT [facility] Comment: Test performed at [facility], [address], [place] [address] Dana Moreno MD, PhD - Solution Manager Blood Venous blood specimen / Unknown Venipuncture / Unknown 12/14/2024 8:53 AM EDT 12/14/2024 10:45 AM EDT Sai Vasquez MD LAB BLOOD ORDERABLES Final Re sult [facility]HAEL P[facility]REZ [address] [place] [address] * HUYEN IFA with titer and pattern (12/14/2024 8:53 AM EDT) HUYEN Negative Negative 12/15/2024 1:33 PM EDT [facility] Blood Venous blood specimen / Unknown Venipuncture / Unknown 12/14/2024 8:53 AM EDT 12/14/2024 10:45 AM EDT Sai Vasquez MD LAB BLOOD ORDERABLES Final Re sult Performing Organization Address [facility] Co de Phone Number [facility] [address] [place] [address], [place] [phone] * Hepatitis B core antibody IgM (12/14/2024 8:53 AM EDT) Hep B Core IgM Negative Negative LAB CHEMISTRY METHOD 12/14/2024 2:13 PM EDT [facility] Blood Venous blood specimen / Unknown Venipuncture / Unknown 12/14/2024 8:53 AM EDT 12/14/2024 10:45 AM EDT Narrative [facility] - 12/14/2024 2:13 PM EDT Over the counter supplements containing high doses of biotin may interfere with this assay. If interference is suspected, patients shoud be retested after refraining from biotin supplements for 72 hours. us Sai Vasquez MD LAB BLOOD ORDERABLES Final Re sult Performing Organization Address City/[facility]/ZIP Co de Phone Number [facility] [address] [place] [address], [place] [phone] * (ABNORMAL) Hepatitis B surface antibody quantitative (12/14/2024 8:53 AM EDT) Pathologist [facility] Hepatitis B Surface Ab Positive (A) Negative LAB CHEMISTRY METHOD 12/14/2024 1:35 PM EDT [facility] Hepatitis B Surface Ab Quantitative >1,000.0 mIU/mL LAB CHEMISTRY METHOD 12/14/2024 1:35 PM EDT [facility] Blood Venous blood specimen / Unknown Venipuncture / Unknown 12/14/2024 8:53 AM EDT 12/14/2024 10:45 AM EDT Narrative [facility] - 12/14/2024 1:35 PM EDT >=10 mIU/mL is considered to be consistent with immunity. Sai Vasquez MD LAB BLOOD ORDERABLES Final Re sult Performing Organization Address [facility]/ZIP Co de Phone Number [facility] [address] [place] [address], [place] [phone] * (ABNORMAL) Vitamin D 25 hydroxy (12/14/2024 8:53 AM EDT) Pathologist [facility] Vit D, 25-Hydroxy 22.3(L) 30.0 - 80.0 ng/mL LAB CHEMISTRY METHOD 12/14/2024 1:34 PM EDT [facility] Blood Venous blood specimen / Unknown Venipuncture / Unknown 12/14/2024 8:53 AM EDT 12/14/2024 10:45 AM EDT us Sai Vasquez MD LAB BLOOD ORDERABLES Final Re sult Performing Organization Address City/[facility]/ZIP Co de Phone Number [facility] [address] [place] [address], [place] [phone] * (ABNORMAL) Complete blood count (12/14/2024 8:53 AM EDT) [facility] Signature WBC 8.9 4.8 - 10.8 K/mcL LAB HEMETOLOGY METHOD 12/14/2024 10:53 AM [facility] RBC 4.50 4.50 - 5.50 M/mcL LAB HEMETOLOGY METHOD 12/14/2024 10:53 AM EDT [facility] Hemoglobin 13.3(L) 13.5 - 17.5 g/dL LAB HEMETOLOGY METHOD 12/14/2024 10:53 AM [facility] Hematocrit 40.3(L) 42.0 - 54.0 % LAB HEMETOLOGY METHOD 12/14/2024 10:53 AM [facility] MCV 90.6 79.0 - 98.0 FL LAB HEMETOLOGY METHOD 12/14/2024 10:53 AM [facility] MCH 29.9 27.0 - 32.0 pcg LAB HEMETOLOGY METHOD 12/14/2024 10:53 AM [facility] MCHC 33.0 32.0 - 37.0 g/dL LAB HEMETOLOGY METHOD 12/14/2024 10:53 AM [facility] RDW 12.7 11.0 - 15.0 % LAB HEMETOLOGY METHOD 12/14/2024 10:53 AM [facility] Platelets 328 130 - 400 K/mcL LAB HEMETOLOGY METHOD 12/14/2024 10:53 AM [facility] MPV 10.4 7.0 - 11.0 FL LAB HEMETOLOGY METHOD 12/14/2024 10:53 AM [facility] NRBC 0.0 <1.0 % LAB HEMETOLOGY METHOD 12/14/2024 10:53 AM [facility] NRBC Absolute 0.00 <0.10 K/mcL LAB HEMETOLOGY METHOD 12/14/2024 10:53 AM EDT [facility] Blood Venous blood specimen / Unknown Venipuncture / Unknown 12/14/2024 8:53 AM EDT 12/14/2024 10:47 AM EDT us Sai Vasquez MD LAB BLOOD ORDERABLES Final Re sult Performing Organization Address City/[facility]/ZIP Co de Phone Number [facility] [address] [place] [address], [place] [phone] * C3 complement (12/14/2024 8:53 AM EDT) C3 Complement 137 88 - 201 mg/dL LAB CHEMISTRY METHOD 12/14/2024 12:41 PM EDT [facility] Blood Venous blood specimen / Unknown Venipuncture / Unknown 12/14/2024 8:53 AM EDT 12/14/2024 10:45 AM EDT us Sai Vasquez MD LAB BLOOD ORDERABLES Final Re sult Performing Organization Address [facility]/ZIP Co de Phone Number [facility] [address] [place] [address], [place] [phone] * C4 complement (12/14/2024 8:53 AM EDT) C4 Complement 34 16 - 47 mg/dL LAB CHEMISTRY METHOD 12/14/2024 12:41 PM EDT [facility] Blood Venous blood specimen / Unknown Venipuncture / Unknown 12/14/2024 8:53 AM EDT 12/14/2024 10:45 AM EDT us Sai Vasquez MD LAB BLOOD ORDERABLES Final Re sult [facility] [address] [place] [address], [place] [phone] * Protein electrophoresis, serum (12/14/2024 8:53 AM EDT) Total Protein 7.0 6.0 - 8.0 g/dL LAB CHEMISTRY METHOD 12/16/2024 2:35 PM EDT [facility] Albumin, Serum 3.5 2.9 - 4.1 g/dL LAB CHEMISTRY METHOD 12/16/2024 2:35 PM EDT [facility] Alpha 1 Globulin (g/dL) 0.2 0.1 - 0.5 g/dL LAB CHEMISTRY METHOD 12/16/2024 2:35 PM EDT [facility] Alpha 2 Globulin (g/dL) 1.1 0.7 - 1.5 g/dL LAB CHEMISTRY METHOD 12/16/2024 2:35 PM EDT [facility] Beta (g/dL) 1.2 0.7 - 1.5 g/dL LAB CHEMISTRY METHOD 12/16/2024 2:35 PM EDT [facility] Gamma Globulin (g/dL) 1.0 0.7 - 1.9 g/dL LAB CHEMISTRY METHOD 12/16/2024 2:35 PM EDT [facility] SPEP Interpretation No M-Shaq seen. Essentially normal pattern. LAB CHEMISTRY METHOD 12/16/2024 2:35 PM EDT [facility] Blood Venous blood specimen / Unknown Venipuncture / Unknown 12/14/2024 8:53 AM EDT 12/14/2024 10:45 AM EDT us Sai Vasquez MD LAB BLOOD ORDERABLES Final Re sult [facility] [address] [place] [address], [place] [phone] * Protein, total (12/14/2024 8:53 AM EDT) Total Protein 7.0 6.0 - 8.0 g/dL LAB CHEMISTRY METHOD 12/14/2024 12:42 PM EDT [facility] Blood Venous blood specimen / Unknown Venipuncture / Unknown 12/14/2024 8:53 AM EDT 12/14/2024 10:45 AM EDT us Sai Vasquez MD LAB BLOOD ORDERABLES Final Re sult Performing Organization Address [facility]/ZIP Co de Phone Number [facility] [address] [place] [address], [place] [phone] * Parathyroid hormone intact (12/14/2024 8:53 AM EDT) PTH 28.1 18.5 - 88.0 pcg/mL LAB CHEMISTRY METHOD 12/14/2024 1:34 PM EDT [facility] Blood Venous blood specimen / Unknown Venipuncture / Unknown 12/14/2024 8:53 AM EDT 12/14/2024 10:45 AM EDT us Sai Vasquez MD LAB BLOOD ORDERABLES Final Re sult Performing Organization Address [facility] Co de Phone Number [facility] [address] [place] [address], [place] [phone] * Magnesium (12/14/2024 8:53 AM EDT) Magnesium 1.9 1.9 - 2.6 mg/dL LAB CHEMISTRY METHOD 12/14/2024 12:30 PM EDT [facility] Blood Venous blood specimen / Unknown Venipuncture / Unknown 12/14/2024 8:53 AM EDT 12/14/2024 10:45 AM EDT us Sai Vasquez MD LAB BLOOD ORDERABLES Final Re sult [facility] [address] [place] [address], * (ABNORMAL) Renal function panel (12/14/2024 8:53 AM EDT) Sodium 143 133 - 145 mmol/L LAB CHEMISTRY METHOD 12/14/2024 2:57 PM EDT [facility] Potassium 3.5 3.5 - 5.5 mmol/L LAB CHEMISTRY METHOD 12/14/2024 2:57 PM EDT [facility] Chloride 110 96 - 110 mmol/L LAB CHEMISTRY METHOD 12/14[facility]24 2:[facility] CO2 27 21 - 32 mmol/L LAB CHEMISTRY METHOD 12/14/2024 2:57 [facility] Anion Gap 6 3 - 11 LAB CHEMISTRY METHOD 12/14/2024 2:57 PM EDT [facility] Glucose 25(LL) 70 - 100 mg/dL LAB CHEMISTRY METHOD 12/14/2024 2:57 PM [facility] BUN 19 5 - 25 mg/dL LAB CHEMISTRY METHOD 12/14/2024 2:57 PM T [facility] Creatinine 1.05 0.70 - 1.30 mg/dL LAB CHEMISTRY METHOD 12/14/2024 2:57 PM EDT [facility] eGFR 83 >=60 mL/min/1. 73m2 LAB CHEMISTRY METHOD 12/14/2024 2:57 PM T [facility] Comment:Calculation based on the Chronic Kidney Disease Epidemiology Collaboration (CKD-EPI) equation refit without adjustment for race. BUN/Creatinine Ratio 18.1 LAB CHEMISTRY METHOD 12/14/2024 2:57 PM T [facility] Albumin 3.9 3.2 - 5.0 g/dL LAB CHEMISTRY METHOD 12/14/2024 2:57 PM EDT [facility] Calcium 9.1 8.5 - 10.5 mg/dL LAB CHEMISTRY METHOD 12/14/2024 2:57 PM EDT [facility] Phosphorus 3.6 2.5 - 4.5 mg/dL LAB CHEMISTRY METHOD 12/14/2024 2:57 PM EDT [facility] Blood Venous blood specimen / Unknown Venipuncture / Unknown 12/14/2024 8:53 AM EDT 12/14/2024 10:45 AM EDT Sai Vasquez MD LAB BLOOD ORDERABLES Final Re sult Performing Organization Address City/[facility]/ZIP Co de Phone Number [facility] [address] [place] [address], [place] [phone] * (ABNORMAL) Hemoglobin A1c (11/29/2024 6:50 AM EDT) Hemoglobin A1C 8.6(H) <6.5 % LAB CHEMISTRY METHOD 11/29/2024 12:42 PM EDT [facility] Mean Bld Glu Estim. 200 mg/dL LAB CHEMISTRY METHOD 11/29/2024 12:42 PM EDT [facility] Blood Venous blood specimen / Unknown 11/29/2024 6:50 AM EDT 11/29/2024 7:17 AM EDT Bryan Payne MD LAB BLOOD ORDERABLES Final Resul t [facility] [address] [place] [address], [place] [phone] * Lipid panel with reflex to direct LDL (11/03/2024 7:05 AM EDT) Cholesterol 167 0 - 200 mg/dL LAB CHEMISTRY METHOD 11/03/2024 9:26 AM EDT [facility] Triglycerides 111 0 - 150 mg/dL LAB CHEMISTRY METHOD 11/03/2024 9:26 AM EDT [facility] HDL 62 >=40 mg/dL LAB CHEMISTRY METHOD 11/03/2024 9:26 AM EDT [facility] LDL Calculated 83 0 - 100 mg/dL LAB CHEMISTRY METHOD 11/03/2024 9:26 AM EDT [facility] VLDL Cholesterol Blue 22.2 mg/dL LAB CHEMISTRY METHOD 11/03/2024 9:26 AM EDT [facility] Non HDL Chol. (LDL+VLDL) 105 <145 mg/dL LAB CHEMISTRY METHOD 11/03/2024 9:26 AM EDT [facility] Chol/HDL Ratio 2.7 0.0 - 4.4 LAB CHEMISTRY METHOD 11/03/2024 9:26 AM EDT [facility] Blood Venous blood specimen / Unknown 11/03/2024 7:05 AM EDT 11/03/2024 8:39 AM EDT us Bryan Payne MD LAB BLOOD ORDERABLES Final Resul t [facility] [address] [place] [address], [place] [phone] * Prostate specific antigen diagnostic (11/03/2024 7:05 AM EDT) PSA 0.09 0.00 - 4.00 ng/mL LAB CHEMISTRY METHOD 11/03/2024 10:51 AM EDT [facility] Blood Venous blood specimen / Unknown 11/03/2024 7:05 AM EDT 11/03/2024 8:39 AM EDT Narrative [facility] - 11/03/2024 10:51 AM EDT The Siemens Advia Centaur Chemiluminescent Immunoassay is used. Results obtained with different assay methods or kits cannot be used interchangeably. Results cannot be interpreted as absolute evidence of the presence or absence of malignant disease. us Bryan Payne MD LAB BLOOD ORDERABLES Final Resul t [facility] [address] [place] [address], * (ABNORMAL) CBC auto differential (11/03/2024 7:05 AM EDT) Only the most recent of3 resultswithin the time period is included. WBC 6.4 4.8 - 10.8 K/mcL LAB HEMETOLOGY METHOD 11/03/2024 9:08 AM EDT [facility] RBC 4.20(L) 4.50 - 5.50 M/mcL LAB HEMETOLOGY METHOD 11/03/2024 9:08 AM [facility] Hemoglobin 12.9(L) 13.5 - 17.5 g/dL LAB HEMETOLOGY METHOD 11/03/2024 9:08 AM [facility] Hematocrit 37.9(L) 42.0 - 54.0 % LAB HEMETOLOGY METHOD 11/03/2024 9:08 AM [facility] MCV 89.8 79.0 - 98.0 FL LAB HEMETOLOGY METHOD 11/03/2024 9:08 AM [facility] MCH 30.6 27.0 - 32.0 pcg LAB HEMETOLOGY METHOD 11/03/2024 9:08 AM EDT [facility] MCHC 34.0 32.0 - 37.0 g/dL LAB HEMETOLOGY METHOD 11/03/2024 9:08 AM [facility] RDW 12.6 11.0 - 15.0 % LAB HEMETOLOGY METHOD 11/03/2024 9:08 AM [facility] Platelets 254 130 - 400 K/mcL LAB HEMETOLOGY METHOD 11/03/2024 9[facility] MPV 11.0 7.0 - 11.0 FL LAB HEMETOLOGY METHOD 11/03/2024 9:08 AM [facility] NRBC 0.0 <1.0 % LAB HEMETOLOGY METHOD 11/03/2024 9:08 AM [facility] NRBC Absolute 0.00 <0.10 K/mcL LAB HEMETOLOGY METHOD 11/03/2024 9:08 AM [facility] Neutrophils Relative 57.7 % LAB HEMETOLOGY METHOD 11/03/2024 9:08 AM [facility] Lymphocytes Relative 26.7 % LAB HEMETOLOGY METHOD 11/03/2024 9:08 AM [facility] Monocytes Relative 7.2 % LAB HEMETOLOGY METHOD 11/03/2024 9:08 AM [facility] Eosinophils Relative 6.7 % LAB HEMETOLOGY METHOD 11/03/2024 9:08 AM [facility] Basophils Relative 1.2 % LAB HEMETOLOGY METHOD 11/03/2024 9:08 AM [facility] Immature Granulocytes Relative 0.5 % LAB HEMETOLOGY METHOD 11/03/2024 9:08 AM [facility] Neutrophils Absolute 3.70 1.50 - 7.00 K/mcL LAB HEMETOLOGY METHOD 11/03/2024 9:08 AM [facility] Lymphocytes Absolute 1.71 1.00 - 5.00 K/mcL LAB HEMETOLOGY METHOD 11/03/2024 9:08 AM [facility] Monocytes Absolute 0.46 0.20 - 1.00 K/mcL LAB HEMETOLOGY METHOD 11/03/2024 9:08 AM [facility] Eosinophils Absolute 0.43 0.00 - 0.50 K/mcL LAB HEMETOLOGY METHOD 11/03/2024 9:08 AM [facility] Basophils Absolute 0.08 0.00 - 0.20 K/[facility] LAB HEMETOLOGY METHOD 11/03/2024 9:08 AM EDT [facility] Immature Granulocytes Absolute 0.03 0.00 - 0.03 K/[facility] LAB HEMETOLOGY METHOD 11/03/2024 9:08 AM EDT [facility] Blood Venous blood specimen / Unknown 11/03/2024 7:05 AM EDT 11/03/2024 8:39 AM EDT us Bryan Payne MD LAB BLOOD ORDERABLES Final Resul t Performing Organization Address City/[facility]/ZIP Co de Phone Number [facility] [address] [place] [address], [place] [phone] * Thyroid stimulating hormone (11/03/2024 7:05 AM EDT) TSH 1.32 0.40 - 4.00 mcIU/mL LAB CHEMISTRY METHOD 11/03/2024 11:14 AM EDT [facility] Blood Venous blood specimen / Unknown 11/03/2024 7:05 AM EDT 11/03/2024 8:39 AM EDT us Bryan Payne MD LAB BLOOD ORDERABLES Final Resul t Performing Organization Address [facility]/ZIP Co de Phone Number [facility] [address] [place] [address], [place] [phone] * (ABNORMAL) Comprehensive metabolic panel (11/03/2024 7:05 AM EDT) Sodium 142 133 - 145 mmol/L LAB CHEMISTRY METHOD 11/03/2024 9:25 AM EDT [facility] Potassium 4.3 3.5 - 5.5 mmol/L LAB CHEMISTRY METHOD 11/03/2024 9:25 AM EDT [facility] Chloride 108 96 - 110 mmol/L LAB CHEMISTRY METHOD 11/03/2024 9:25 AM [facility] CO2 29 21 - 32 mmol/L LAB CHEMISTRY METHOD 11/03/2024 9:25 AM [facility] Anion Gap 5 3 - 11 LAB CHEMISTRY METHOD 11/03/2024 9:25 AM [facility] Glucose 176(H) 70 - 100 mg/dL LAB CHEMISTRY METHOD 11/03/2024 9:25 AM [facility] BUN 27(H) 5 - 25 mg/dL LAB CHEMISTRY METHOD 11/03/2024 9:25 AM [facility] Creatinine 1.25 0.70 - 1.30 mg/dL LAB CHEMISTRY METHOD 11/03/2024 9:25 AM [facility] eGFR 67 >=60 mL/min/1. 73m2 LAB CHEMISTRY METHOD 11/03/2024 9:25 AM [facility] Comment:Calculation based on the Chronic Kidney Disease Epidemiology Collaboration (CKD-EPI) equation refit without adjustment for race. BUN/Creatinine Ratio 21.6 LAB CHEMISTRY METHOD 11/03/2024 9:25 AM [facility] Calcium 9.1 8.5 - 10.5 mg/dL LAB CHEMISTRY METHOD 11/03/2024 9:25 AM [facility] AST (SGOT) 17 10 - 42 unit/L LAB CHEMISTRY METHOD 11/03/2024 9:25 AM [facility] ALT (SGPT) 20 10 - 60 unit/L LAB CHEMISTRY METHOD 11/03/2024 9:25 AM [facility] Alkaline Phosphatase 114 42 - 121 unit/L LAB CHEMISTRY METHOD 11/03/2024 9:25 AM [facility] Total Protein 6.5 6.0 - 8.0 g/dL LAB CHEMISTRY METHOD 11/03/2024 9:25 AM [facility] Albumin 3.4 3.2 - 5.0 g/dL LAB CHEMISTRY METHOD 11/03/2024 9:25 AM EDT [facility] Total Bilirubin 0.2 0.0 - 1.4 mg/dL LAB CHEMISTRY METHOD 11/03/2024 9:25 AM EDT [facility] Blood Venous blood specimen / Unknown 11/03/2024 7:05 AM EDT 11/03/2024 8:39 AM EDT Bryan Payne MD LAB BLOOD ORDERABLES Final Resul t Performing Organization Address [facility] Co de Phone Number [facility] [address] [place] [address], [place] [phone] * HIV 1,2 antibody, p24 antigen with reflex to differentiation (10/22/2024 6:59 AM EDT) Only the most recent of2 resultswithin the time period is included. HIV Combo AB/AG Negative Negative LAB CHEMISTRY METHOD 10/22/2024 10:41 PM EDT [facility] Blood Venous blood specimen / Unknown 10/22/2024 6:59 AM EDT 10/22/2024 9:01 AM EDT Narrative [facility] - 10/22/2024 10:41 PM EDT [...] ORDERABLES Grisel l Result Performing Organization Address City/[facility]/ZIP Co de Phone Number [facility] [address] [place] [address], [place] [phone] * Treponema pallidum antibody with reflex to RPR and particle agglutination (10/22/2024 6:59 AM EDT) Only the most recent of2 resultswithin the time period is included. T. Pallidum Antibodies Negative Negative LAB CHEMISTRY METHOD 10/22/2024 10:38 PM EDT [facility] Blood Venous blood specimen / Unknown 10/22/2024 6:59 AM EDT 10/22/2024 9:01 AM EDT Felicia Almonte MD LAB BLOOD ORDERABLES Grisel l Result Performing Organization Address City/[facility]/ZIP Co de Phone Number [facility] [address] [place] [address], [place] [phone] * White - K2EDTA (10/22/2024 6:59 AM EDT) Extra Tube Hold for add-ons. 10/22/2024 11:01 AM EDT [facility] Comment:Auto resulted. Blood Venous blood specimen / Unknown 10/22/2024 6:59 AM EDT 10/22/2024 9:01 AM EDT Felicia Almonte MD LAB BLOOD ORDERABLES Grisel l Result Performing Organization Address [facility] Co de Phone Number [facility] [address] [place] [address], [place] [phone] * SST tube (10/22/2024 6:59 AM EDT) Only the most recent of3 resultswithin the time period is included. Extra Tube Hold for add-ons. 10/22/2024 11:01 AM EDT [facility] Comment:Auto resulted. Blood Venous blood specimen / Unknown 10/22/2024 6:59 AM EDT 10/22/2024 9:01 AM EDT Felicia Almonte MD LAB BLOOD ORDERABLES Grisel l Result [facility] [address] [place] [address], [place] [phone] * (ABNORMAL) Hepatitis A antibody total with reflex IgM (10/22/2024 6:59 AM EDT) [facility] Hep A Total Ab Positive( A) Negative LAB CHEMISTRY METHOD 10/22/2024 12:04 PM EDT [facility] Blood Venous blood specimen / Unknown 10/22/2024 6:59 AM EDT 10/22/2024 9:01 AM EDT Narrative [facility] - 10/22/2024 12:04 PM EDT Over the counter supplements containing high doses of biotin may interfere with this assay. If interference is suspected, patients shoud be retested after refraining from biotin supplements for 72 hours. Felicia Almonte MD LAB BLOOD ORDERABLES Grisel addison Result Performing Organization Address City/[facility]/ZIP Co de Phone Number [facility] [address] [place] [address], [place] [phone] * Hepatitis C virus quantitative molecular study (10/22/2024 6:59 AM EDT) [facility] HCV Qual Interp Not Detected Not Detected LAB MOLECULAR DIAGNOSTICS METHOD 10/24/2024 12:43 PM EDT [facility] Comment:HCV RNA not detected , unable to report quantitative results. Blood Venous blood specimen / Unknown 10/22/2024 6:59 AM EDT 10/22/2024 8:57 AM EDT Bryan Payne MD LAB BLOOD ORDERABLES Final Resul t Performing Organization Address [facility]/State/ZIP Co de Phone Number [facility] [address] [place] [address], [place] [phone] * Lavender tube (10/22/2024 6:59 AM EDT) [facility] Extra Tube Hold for add-ons. 10/22/2024 11:01 AM EDT [facility] Comment:Auto resulted. Blood Venous blood specimen / Unknown 10/22/2024 6:59 AM EDT 10/22/2024 9:01 AM EDT Felicia Almonte MD LAB BLOOD ORDERABLES Grisel l Result Performing Organization Address [facility] de Phone Number [facility] [address] [place] [address], * Hepatitis A antibody IgM (10/22/2024 6:59 AM EDT) [facility] Hepatitis A Antibody IgM Negative Negative LAB CHEMISTRY METHOD 10/22/2024 1:55 PM EDT [facility] Blood Venous blood specimen / Unknown 10/22/2024 6:59 AM EDT 10/22/2024 9:01 AM EDT Narrative [facility] - 10/22/2024 1:55 PM EDT Over the counter supplements containing high doses of biotin may interfere with this assay. If interference is suspected, patients shoud be retested after refraining from biotin supplements for 72 hours. Felicia Almonte MD LAB BLOOD ORDERABLES Grisel l Result Performing Organization Address [facility] de Phone Number [facility] [address] [place] [address], * (ABNORMAL) Creatinine (10/22/2024 6:59 AM EDT) Only the most recent of2 resultswithin the time period is included. [facility] Creatinine 1.38(H) 0.70 - 1.30 mg/dL LAB CHEMISTRY METHOD 10/22/2024 9:37 PM EDT [facility] eGFR 60 >=60 mL/min/1. 73m2 LAB CHEMISTRY METHOD 10/22/2024 9:37 PM EDT [facility] Comment:Calculation based on the Chronic Kidney Disease Epidemiology Collaboration (CKD-EPI) equation refit without adjustment for race. Blood Venous blood specimen / Unknown 10/22/2024 6:59 AM EDT 10/22/2024 9:01 AM EDT Felicia Almonte MD LAB BLOOD ORDERABLES Grisel l Result Performing Organization Address City/[facility]/ZIP Co de Phone Number [facility] [address] [place] [address], [place] [phone] * (ABNORMAL) Hepatitis B surface antibody (10/22/2024 6:59 AM EDT) Only the most recent of2 resultswithin the time period is included. Hepatitis B Surface Ab Positive (A) Negative LAB CHEMISTRY METHOD 10/22/2024 10:02 PM EDT [facility] Hepatitis B Surface Ab Quantitative >1,000.0 mIU/mL LAB CHEMISTRY METHOD 10/22/2024 10:02 PM EDT [facility] Blood Venous blood specimen / Unknown 10/22/2024 6:59 AM EDT 10/22/2024 9:01 AM EDT Narrative [facility] - 10/22/2024 10:02 PM EDT >=10 mIU/mL is considered to be consistent with immunity. us Felicia Almonte MD LAB BLOOD ORDERABLES Grisel l Result Performing Organization Address City/[facility]/ZIP Co de Phone Number [facility] [address] [place] [address], [place] [phone] * Prothrombin time with INR (10/22/2024 6:59 AM EDT) Only the most recent of2 resultswithin the time period is included. Protime 12.8 10.6 - 13.9 sec LAB COAGULATION METHOD 10/22/2024 5:19 PM EDT [facility] INR 1.0 LAB COAGULATION METHOD 10/22/2024 5:19 PM EDT [facility] Blood Venous blood specimen / Unknown 10/22/2024 6:59 AM EDT 10/22/2024 3:12 PM EDT Felicia Almonte MD LAB BLOOD ORDERABLES Grisel l Result [facility] [address] [place] [address], [place] [phone] * Bilirubin, total and direct (10/22/2024 6:59 AM EDT) Only the most recent of2 resultswithin the time period is included. Total Bilirubin 0.3 0.0 - 1.4 mg/dL LAB CHEMISTRY METHOD 10/22/2024 9:37 PM EDT [facility] Bilirubin, Direct 0.1 0.0 - 0.3 mg/dL LAB CHEMISTRY METHOD 10/22/2024 9:37 PM EDT [facility] Bilirubin, Indirect 0.2 0.0 - 1.1 mg/dL LAB CHEMISTRY METHOD 10/22/2024 9:37 PM EDT [facility] Blood Venous blood specimen / Unknown 10/22/2024 6:59 AM EDT 10/22/2024 9:01 AM EDT Felicia Almonte MD LAB BLOOD ORDERABLES Grisel l Result [facility] [address] [place] [address], [place] [phone] * Alanine aminotransferase (10/22/2024 6:59 AM EDT) Only the most recent of2 resultswithin the time period is included. ALT (SGPT) 23 10 - 60 unit/L LAB CHEMISTRY METHOD 10/22/2024 9:37 PM EDT [facility] Blood Venous blood specimen / Unknown 10/22/2024 6:59 AM EDT 10/22/2024 9:01 AM EDT Felicia Almonte MD LAB BLOOD ORDERABLES Grisel l Result Performing Organization Address City/[facility]/ZIP Co de Phone Number [facility] [address] [place] [address], * Aspartate aminotransferase (10/22/2024 6:59 AM EDT) Only the most recent of2 resultswithin the time period is included. AST (SGOT) 23 10 - 42 unit/L LAB CHEMISTRY METHOD 10/22/2024 9:37 PM EDT [facility] Comment:Hemolysis present Blood Venous blood specimen / Unknown 10/22/2024 6:59 AM EDT 10/22/2024 9:01 AM EDT Felicia Almonte MD LAB BLOOD ORDERABLES Grisel l Result Performing Organization Address [facility] Co de Phone Number [facility] [address] [place] [address], [place] [phone] * Albumin (10/22/2024 6:59 AM EDT) Only the most recent of2 resultswithin the time period is included. Albumin 3.7 3.2 - 5.0 g/dL LAB CHEMISTRY METHOD 10/22/2024 9:37 PM EDT [facility] Blood Venous blood specimen / Unknown 10/22/2024 6:59 AM EDT 10/22/2024 9:01 AM EDT us Felicia Almonte MD LAB BLOOD ORDERABLES Grisel l Result Performing Organization Address City/[facility]/ZIP Co de Phone Number [facility] [address] [place] [address], [place] [phone] from Last 3 Months Insurance [facility] MEDICAID Care Teams Yarn Finisher Relationship Specialty Start Date End Date Bryan Payne MD [address] [place] [address] Dr [address] [place] PCP - General Internal Medicine 08/20/24
--- OUTSIDE RECORDS SUMMARY | 2025-01-14 10:10 | XMS_ITS | Clinical Summary ---
Author Organization [facility] Address [facility] [place] [address] Care Team Providers Care Cartoon Animator Name Role Phone Rangel Kruse ANIBAL Primary Care Provider [phone] Allergies Active Allergy Reactions Criticality Noted Date [...] opioid overdose) for up to 2 doses. [place] into one nostril (either left or right). [...] metabolic encephalopathy 01/05/2024 DKA (diabetic ketoacidosis) 01/05/2024 GUSTVAO (acute kidney injury) 01/05/2024 Coag negative Staphylococcus [...] drink = 0.6 oz pur e alcohol) [facility] Utilities Answer Date Recorded In the past 12 months has th e [employer], [employer], oil, or water [employer] threatened to shut off services in your [...] place to sleep or slept in a alf (including now)? No 09/22/2023 Housing Stability Vital Sign Answer Leander e Recorded In the last 12 months, was t here a time when you were not able to pay the mortgage or rent on time? No 01/05/2024 In the past 12 months, how m any times have you moved where you were living? 1 01/05/2024 At any time in the past 12 m [facility], were you homeless or living in a alf (including now)? No 01/05/2024 DH IPV Inpatient [...] - 199 mg/dL 02/06/2024 8:52 AM EDT [facility] Comment:Glucose Concentratio n >=200 mg/dL plus symptoms is consistent with Diabetes Mellitus. Blood Urea Nitrogen 55(H) 10 - 20 mg/dL 02/06/2024 8:52 AM EDT [facility] Creatinine 1.38 0.80 - 1.50 mg/dL 02/06/2024 8:52 AM EDT [facility] Sodium 138 135 - 145 mMol/L 02/06/2024 8:52 AM EDT [facility] Potassium 4.3 3.5 - 5.0 mMol/L 02/06/2024 8:52 AM EDT [facility] Chloride 103 98 - 107 mMol/L 02/06/2024 8:52 AM EDT [facility] Carbon Dioxide 26 22 - 31 mMol/L 02/06/2024 8:52 AM EDT [facility] Anion Gap 9 5 - 15 mMol/L 02/06/2024 8:52 AM EDT [facility] Calcium 9.3 8.5 - 10.5 mg/dL 02/06/2024 8:52 AM [facility] Est Glomerular Filtration Rate - Male 60 mL/min/1. 73 m 02/06/2024 8:52 AM T [facility] Comment: This patient's estimated GFR [...] Smith MD CHEMISTRY ORDERABLES Final Re sult [facility] [place] [address] * (ABNORMAL) Blood Gas, Arterial POC (01/15/2024 5:33 AM EDT) pH, Arterial 7.40 7.35 - 7.45 01/15/2024 6:53 AM EDT [facility] PCO2, Arterial 40 35 - 45 mmHg 01/15/2024 6:53 AM [facility] PO2, Arterial 97 85 - 104 mmHg 01/15/2024 6:53 AM [facility] Bicarbonate, Arterial 24.2 20.0 - 26.0 mmol/L 01/15/2024 6:53 AM [facility] Base Excess, Arterial -0.5 -3.0 - 3.0 mmol/L 01/15/2024 6:53 AM [facility] Hemoglobin, Arterial 9.4(L) 13.7 - 16.5 g/dL 01/15/2024 6:53 AM [facility] Oxyhemoglobin, Arterial 96.3 94.0 - 97.0 % 01/15/2024 6:53 AM [facility] Carboxyhemoglobin, Arterial 0.6 % 01/15/2024 6:53 AM [facility] Comment: Nonsmokers: 0.5-1.5% COHB Smokers: Variable but usually less than 10% Toxic: 20-30% COHB Lethal: Greater than 60% COHB Methemoglobin, Arterial 0.3 <=1.5 % 01/15/2024 6:53 AM [facility] Sodium, Arterial 136 135 - 145 mmol/L 01/15/2024 6:53 AM [facility] Potassium, Arterial 3.9 3.5 - 5.0 mmol/L 01/15/2024 6:53 AM [facility] Chloride, Arterial 103 98 - 107 mmol/L 01/15/2024 6:53 AM [facility] Lactate, Arterial 1.8 0.5 - 2.2 mmol/L 01/15/2024 6:53 AM [facility] Fraction of Inspired Oxygen 21 % 01/15/2024 6:53 AM [facility] PF Ratio 462 Ratio 01/15/2024 6:53 AM [facility] Comment:PF ratio calculated using the non-temperature corrected pO2 result. IONIZED CALCIUM, ARTERIAL 1.18 1.15 - 1.33 mmol/L 01/15/2024 6:53 AM EDT [facility] Glucose, Arterial 138 65 - 199 mg/dL 01/15/2024 6:53 AM EDT [facility] Comment:Glucose Concentratio n >=200 mg/dL plus symptoms is consistent with Diabetes Mellitus. Blood ARTERIAL BLOOD / Unknown 01/15/2024 5:33 AM EDT 01/15/2024 6:53 AM EDT us Luther Robbins DO POINT OF CARE TEST ORDERABLES Fi nal Result Performing Organization Address City/[facility]/ZIP Co de Phone Number [facility] [place] [address] * (ABNORMAL) Hemoglobin A1c (01/05/2024 5:59 AM EDT) Hemoglobin A1c 8.6(H) 4.3 - 5.6 % 01/05/2024 8:08 AM EDT [facility] Comment: Per ADA guidelines, without [...] red blood cell turnover may not be workforce services representative of glycemic control. Reference Interval: 4.3 - 5.6% 5.7 - 6.4%: Consistent with prediabetes >=6.5%: Consistent with diagnosis of diabetes mellitus Estimated Average Glucose 200 mg/dL 01/05/2024 8:08 AM EDT [facility] Blood VENOUS BLOOD SPECIMEN / Unknown IP Care Team Draw / Unknown 01/05/2024 5:59 AM EDT 01/05/2024 6:08 AM EDT us Rodney Peñaloza MD CHEMISTRY ORDERABLES Final R esult [facility] [place] [address] * HDL/Cholesterol Profile (07/26/2023 6:35 AM EST) Cholesterol, Total 141 mg/dL [facility] Comment: Lower Risk: <200 mg/dL Average Risk: 200-239 mg/dL Higher Risk: >kb=358 mg/dL HDL Cholesterol 36 mg/dL [facility] Comment: Males: Higher Risk: <40 mg/dL Females: Higher Risk: <50 mg/dL Cholesterol/HDL Ratio 3.9 ratio [facility] Chol/HDL Interpretation See Note [facility] Comment: Lipid management should be guided by a patient s ASCVD risk, goals and preferences. ACC/AHA Guidelines recommend high intensity statin if clinical ASCVD or LDL greater than or equal to 190 mg/dL. http://ViFlux.com/JZC-TKA-Otrvrnbbw Measure LDL if Total Cholesterol minus HDL Cholesterol is greater than 220 mg/dL. 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
--- OUTSIDE RECORDS SUMMARY | 2025-01-14 10:10 | XMS_ITS | Encounter Summary ---
Author Organization [facility] Address [address] [place] [address] Care Team Providers Care Inbound Sales Advisor Name Role Phone Crow Raya MD Primary Care Provider [phone] Sherri Aguirre PA-C Primary Care Provider [phone] Encounter Details Date Type Department Care Team (Late st Contact Info) Description 09/21/2019 Lab Requisition [facility] Pathology & Laboratory Medicine - [facility] [address] [place] [address] Unknown, Provider, Social History Tobacco Use Types [...] Name Priority Date/Time Associated Diagnosis Comments URINE [id number] NE RATIO (ACR) Routine 09/21/2019 13:32 EDT documented in this encounter Results * (ABNORMAL) ALBUMIN, URINE (09/21/2019 13:32 EDT) Albumin, Urine 22.2 See Note mg/dL 2019 22:09 EDT [facility] Comment: NOTE: Reference range not established Creatinine, Urine 28.9 See Note mg/dL 09/21/2019 22:09 EDT [facility] Comment: NOTE: Reference range not established Lab Urine Albumin to Creatinine Ratio 768(H) <30 ug/mg Creatinine 09/21/2019 22:09 EDT [facility] Comment: Urine Albumin/Creatinine Ratio: Normal: <30 ug/mg Creatinine Moderately increased albuminuria: 30-300 ug/mg Creatinine Tawana increased albuminuria: >300 ug/mg Creatinine Urine URINE SPECIMEN OBTAINED BY CLEAN CATCH PROCEDURE / Unknown 09/21/2019 13:32 EDT 09/21/2019 21:30 EDT us Provider Unknown CHEMISTRY & BLOOD GAS ORDERA BLES Final Result [facility] [address] [place] [address] documented in this encounter Visit Diagnoses Not on filedocumented in this encounter Care Teams Inbound Sales Advisor Relationship Specialty Start Date End Date Crow Raya MD [address] [place] [id number] PCP - General 06/28/09 10/30/21 Sherri Aguirre PA-C [address] [place] [address] PCP - General 10/31/21 documented as of this encounter
--- OUTSIDE RECORDS SUMMARY | 2025-01-14 10:10 | XMS_ITS | Continuity of Care Document ---
Author Organization [facility] Address [address] [place] [address] [address] [place], [place] Phone [phone] Care Team Providers Care Certified Phlebotomist Name Role Phone Vlad Reynolds PA-C Care Team Information Rec eiver Unavailable VICTORINO KENNEY M.D. Care Team Information Rec eiver Unavailable Vlad Reynolds PA-C Primary Care Physician Un available Social History Type Date Description Comments Sex Male Sex Unknown
[2025-01-17 15:43] LABS: HCV Log PCR <1.18 NOT DETECTED Log IU/mL (NOT DETECTED); HepC Viral Load <15 NOT DETECTED IU/mL (NOT DETECTED)
== END 2025-01-14 09:53 | disposition home or self-care (01) ==
LOC: HO.LAB 09:52
PROVIDERS: PCP Hospitalist; Visit Provider Nurse Practitioner
DX: D72.829 Elevated white blood cell count, unspecified (principal); R76.8 Other specified abnormal immunological findings in serum
CPT/HCPCS: 36415; 87522